=== PATIENT | female | born 1945 | race Caucasian/White ===

== ENCOUNTER 2019-09-23 20:18 | Inpatient (IN) | payer MEDICARE, SELFPAY ==
[2019-09-23 19:40] VITALS: PULSE 68
[2019-09-23 19:45] VITALS: BP 183/51; PULSE 69; RESP 20; TEMP 36.7; O2SAT 97
[2019-09-23 19:49] VITALS: BMI 38.7
--- NOTE | 2019-09-23 20:25 | HP.PCM_ITS ---
Problem List (1) Asthma exacerbation Status: Acute History of Present Illness Date of Admission: 09/23/19 Chief Complaint: shortness of breath The patient is a 73 year old F with a significant history of fibromyalgia; morbid obesity; asthma on 2 L home nasal cannula oxygen; osteoarthritis; hypertension; hyperlipidemia; aortic aneurysm; carotid artery disease status post carotid endarterectomy who presented with 1 month history of persistent shortness of breath. Associated with her symptoms is productive cough of white sputum; orthopnea and paroxysmal nocturnal dyspnea. In the course of the one month, patient has been treated for bronchitis. A week ago she was admitted at [facility] and treated for the same current symptoms. She was discharged home and instructed to follow up with a PCP. At home her oxygen saturation was between 83% to 90%. She went to her PCPs office at the same day of presentation. At the PCPs office she was examined and told to report to emergency department because of her respiratory symptoms. Accordingly she went to [facility] ED where she was treated for asthma exacerbation. Patient requested to be seen by biodiesel engine specialist and because [facility] does not have a biodiesel engine specialist patient was transferred. She was transferred to hospital on the same day of presentation to [facility] emergency department. She saw Dr. Oakley; biodiesel engine specialist probably in August 2019 and she is supposed to have further work up with Dr. Oakley. CT of the chest at [facility] showed bronchiolitis; inflammatory versus infectious. At [facility] patient received breathing treatment; steroid and doxycycline. Past Medical History Medical History: Medical History (Last Reviewed 09/24/19 @ 04:55 by Michael Ryan MD) Asthma J45.909 Home Medications: Ambulatory Orders Medication Instructions Recorded Aspirin [Aspir 81] 81 mg PO DAILY 09/23/19 Atorvastatin Calcium [Lipitor] 20 mg PO QHS 09/23/19 Benazepril HCl 20 mg BID 09/23/19 Budesonide/Formoterol 160/4.5 2 puff INHALATION BID 09/23/19 [Symbicort 160/4.5 Mcg Inhaler (SP)] Carvedilol 25 mg BID 09/23/19 Citalopram Hydrobromide 10 mg PO DAILY 09/23/19 [Citalopram HBr] Famotidine 20 mg PO BID 09/23/19 Fluticasone 0.05% [Flonase Nasal 1 spray NASAL BID PRN 09/23/19 [place]] Hydralazine HCl 25 mg PO TID 09/23/19 Hydroxychloroquine [Plaquenil] 200 mg PO BIDCM 09/23/19 Ipratropium/Albuterol Sulfate 3 ml IH Q4H 09/23/19 [Iprat-Albut 0.5-3(2.5) mg/3 ml] Levalbuterol Tartrate [Xopenex Hfa 2 puff INHALATION Q4H PRN PRN 09/23/19 Inhaler] Methocarbamol 500 mg PO BID PRN 09/23/19 Montelukast Sodium [Singulair] 10 mg PO DAILY 09/23/19 Nystatin 2 applicatio TOPICAL BID PRN 09/23/19 Promethazine HCl/Codeine 5 ml PO TID PRN 09/23/19 [Promethazine-Codeine Syrup] Surgical History: appendectomy, cholecystectomy, - - Carotid endarterectomy Lives: Spouse/ Significant Other Smoking Status: Never smoker Alcohol: None - *Family History Maternal History Items: Heart Disease, Hypertension Paternal History Items: Heart Disease Review of Systems Constitutional: Reports: Anorexia, Malaise, Weakness, Fatigue. Denies: Chills, Fever, Weight Change HEENT: Reports: Head Aches, Sinus Congestion Cardiovascular: Reports: Chest Tightness, Orthopnea, Paroxysmal Noc. Dyspnea. Denies: Chest Pain, Palpitations Respiratory: Reports: Cough, Shortness of Breath, Sputum production, Wheezing Gastrointestinal: Denies: Abdominal Pain, Nausea, Vomiting Genitourinary: Denies: Dysuria Musculoskeletal: Denies: Joint Pain, Joint Tenderness Skin: Denies: Rash, Wounds Neurological: Denies: Numbness, Tingling, Focal weakness Psychiatric: Reports: Depression. Denies: Anxiety, Homicidal Ideations, Suicidal Ideations Hematologic/ Lymphatic: Denies: Easy Bruising, Easy Bleeding VTE Information - Inpt Only VTE Present on Admission: No VTE Mechan Device Prophylaxis: None VTE Pharm Prophylaxis ordered?: Yes Patient Problems: Active and Suspected Problems (Last Reviewed 09/23/19 @ 20:47 by Michael Ryan MD) Asthma exacerbation (Acute) - Physical Exam Vitals/I&O's: Weight: 105.7 kg Body Mass Index (BMI) 38.7 General: Alert, Oriented x3, Cooperative HEENT: Atraumatic, PERRLA, EOMI, Normocephalic Neck: Supple, No JVD, Negative Carotid Bruits Lungs: No rales, Tachypneic, Wheezes - mild to moderate Cardiovascular: Normal S1, Normal S2, No murmurs Abdomen: Bowel Sounds Present, Soft, Non Tender Extremities: No edema, Capillary Refill Less than 3 Seconds Skin: No rashes, No breakdown Musculoskeletal: No Tenderness to Palpation of Joints or Extremities Neurological: Cranial nerves II-XII grossly intact Psych/Mental Status: Normal Affect, Appropriate Assessment/Plan All Active Problems (Last Reviewed 09/23/19 @ 20:47 by Michael Ryan MD) Asthma exacerbation (Acute) The patient is a 73 year old F with a significant history of fibromyalgia; morbid obesity; asthma on 2 L home nasal cannula oxygen;osteoarthritis and hypertensions; hyperlipidemia; aortic aneurysm; carotid artery disease status post carotid endarterectomy who presented with shortness of breath; productive cough; nasal congestion; wheezing and if CT evidence of bronchiolitis consistent with asthma and bronchiolitis. Asthma exacerbation with bronchiolitis Scheduled DuoNeb Albuterol as needed Prednisone 40 mg daily ordered. On ICS-LABA at home. ICS continued Scheduled mucinex. Continue home promethazine?codeine syrup as needed. We will continue Doxycycline started at [place] emergency department. Oxygen; titrate as needed Monitor BMP and CBC We will consult Dr. Minor, biodiesel engine specialist. Nasal congestion Flonase continued Hypertensive urgency On presentation her systolic blood pressure was more than 180. Resume home oral blood pressure medications. Trend and adjust blood pressure medications as necessary Arthritis Plaquenil continued DVT prophylaxis Subcutaneous heparin Code Visit Inpatient E&M: 82088 Init Hosp L3
[2019-09-23 20:55] VITALS: BMI 38.8
[2019-09-23] MEDS: Fluticasone 0.05% 1 SPRAY NASAL.SRY NASAL (22:13)
[2019-09-23] MEDS: guaiFENesin 1,200 MG Tablet 1200 MG PO (22:13)
[2019-09-23] MEDS: Doxycycline 100 MG CAPSULE PO (22:14)
[2019-09-23 22:15] VITALS: BP 183/51; PULSE 69
[2019-09-23] MEDS: Atorvastatin Calcium 20 MG Tablet PO (22:15)
[2019-09-23] MEDS: hydrALAZINE 25 MG Tablet PO (22:15)
[2019-09-23] MEDS: Lisinopril 20 MG Tablet PO (22:16)
[2019-09-23] MEDS: Carvedilol 25 MG Tablet PO (22:16)
[2019-09-23] MEDS: Famotidine 20 MG Tablet PO (22:16)
[2019-09-23] MEDS: Heparin Injection (Vial) 5,000 UNIT/ML VIAL 5000 UNIT SC (22:16)
[2019-09-23] MEDS: guaiFENesin/Codeine 5 ML UDC PO (22:22)
[2019-09-23 23:05] VITALS: RESP 20; O2SAT 97
[2019-09-24] VITALS (21 sets, daily range): BP systolic 114–189; BP diastolic 57–73; PULSE 57–80; RESP 16–20; TEMP 36.5–36.9; O2SAT 85–97
[2019-09-24] MEDS: hydrALAZINE 25 MG Tablet PO ×2 (06:23→13:07)
[2019-09-24 06:33] LABS: Absolute Lymphocyte Count 1.07 X10^3/uL (0.83-4.51); Absolute Neutrophil Count 4.8 X10^3/uL (2.0-7.7); Basophil# 0.01 X10^3/uL; Basophil% 0.2 % (0-1); Hematocrit 37.6 % (37-47); Hemoglobin 12.1 g/dL (12.0-15.0); Lymphocyte # 1.07 X10^3/ul (4.0); Lymphocyte % 16.6 % (19-41); Mean Corp Hgb Conc 32.2 g/dL (32-36); Mean Corpuscular Hgb 29.2 pg (27.0-32.0); Mean Corpuscular Volume 90.8 fL (81-99); Mean Platelet Vol. 10.9 fl (6.2-12.0); Monocyte# 0.45 X10^3/uL; NRBC Flagged by Analyzer 0 % (0-5); Neutrophil # 4.83 X10^3/uL (2.7-7.7); Neutrophil % 75.1 % (47-70); Platelet Count 151 K/mm3 (150-450); RBC Distribution Width CV 12.3 % (11.6-14.6); RBC Distribution Width SD 40.5 fl (35.1-43.9); Red Blood Count 4.14 M/mm3 (4.2-5.4); White Blood Count 6.4 K/mm3 (4.4-11.0)
[2019-09-24] MEDS: Ipratropium/Albuterol Sulfate 3 ML AMPUL.NEB INHALATION ×4 (06:53→19:27)
[2019-09-24 06:56] LABS: Anion Gap 4 (5-15); BUN 24 mg/dL (7-18); BUN/Creat Ratio 25.2 RATIO (10-20); Calcium,Total 8.3 mg/dL (8.5-10.1); Chloride 109 mmol/L (98-107); Creatinine, Serum 0.95 mg/dL (0.55-1.02); EST Glomerular Filtration Rate 61 mL/min (>60); Est Glom Filt Rate - Afr Amer 73 mL/min (>60); Estimated Creatinine Clearance 46.04 ml/min; Glucose 102 mg/dL (74-106); Potassium 4.2 mmol/L (3.5-5.1); Sodium Level 143 mmol/L (136-145)
[2019-09-24] MEDS: Hydroxychloroquine 200 MG Tablet PO ×2 (08:05→21:34)
[2019-09-24] MEDS: predniSONE 20 MG Tablet 40 MG PO (08:05)
[2019-09-24] MEDS: Aspirin E.C. 81 MG Tablet PO (08:05)
[2019-09-24] MEDS: Carvedilol 25 MG Tablet PO ×2 (08:06→21:35)
[2019-09-24] MEDS: Heparin Injection (Vial) 5,000 UNIT/ML VIAL 5000 UNIT SC ×2 (08:06→21:35)
[2019-09-24] MEDS: Doxycycline 100 MG CAPSULE PO (08:06)
[2019-09-24] MEDS: Lisinopril 20 MG Tablet PO ×2 (08:07→21:35)
[2019-09-24] MEDS: Fluticasone 0.05% 1 SPRAY NASAL.SRY NASAL ×2 (08:07→21:37)
[2019-09-24] MEDS: guaiFENesin 1,200 MG Tablet 1200 MG PO ×2 (08:07→21:33)
[2019-09-24] MEDS: Famotidine 20 MG Tablet PO ×2 (08:07→21:35)
--- NOTE | 2019-09-24 11:22 | PN_ITS ---
Patient Problems: Active and Suspected Problems (Last Reviewed 09/24/19 @ 04:55 by Michael Ryan MD) Asthma exacerbation (Acute) - Physical Exam Vitals/I&O's: Vital Signs Temp Pulse Resp BP Pulse Ox 97.8 F 68 18 150/65 H 97 09/24/19 06:12 09/24/19 06:53 09/24/19 06:53 09/24/19 08:10 09/24/19 06:53 Oxygen Flow Rate (L/min) 2 Oxygen Delivery Method Nasal Cannula Weight: 105.7 kg Body Mass Index (BMI) 38.7 Intake and Output for Last 24 Hours 09/22/19 09/23/19 09/24/19 23:59 23:59 23:59 Intake Total 150 / 150 200 / 200 Output Total 300 / 300 100 / 100 Balance -150 / -150 100 / 100 General: Alert, Oriented x3, Cooperative, - - dry mouth HEENT: Atraumatic, PERRLA, EOMI, Normocephalic Oral: Dry Mucosa Neck: Supple, No JVD, Negative Carotid Bruits Lungs: - - wheeze, long exp i to e 1-3, poor air entry. no cough Cardiovascular: Regular rate, No murmurs, - - freq pc's Abdomen: Bowel Sounds Present, Soft, Non Tender Extremities: No edema, Capillary Refill Less than 3 Seconds Skin: No rashes, No breakdown Musculoskeletal: No Tenderness to Palpation of Joints or Extremities Neurological: Cranial nerves II-XII grossly intact Psych/Mental Status: Normal Affect, Appropriate Laboratory Results 09/24/19 06:05: WBC 6.4, RBC 4.14 L, Hgb 12.1, Hct 37.6, MCV 90.8, MCH 29.2, MCHC 32.2, RDW Std Deviation 40.5, RDW Coeff of [place]sy 12.3, Plt Count 151, MPV 10.9, Immature Gran % (Auto) 1.100 H, Neut % (Auto) 75.1 H, Lymph % (Auto) 16.6 L, [place] % (Auto) 7.0, Eos % (Auto) 0.0, Baso % (Auto) 0.2, Absolute Neuts (auto) 4.8, Absolute Lymphs (auto) 1.07, Nucleated RBC % 0 09/24/19 06:05: Sodium 143, Potassium 4.2, Chloride 109 H, Carbon Dioxide 30.0, Anion Gap 4 L, BUN 24 H, Creatinine 0.95, Estim Creat Clear Calc 46.04, Est GFR (MDRD) Af Amer 73, Est GFR (MDRD) Non-Af 61, BUN/Creatinine Ratio 25.2 H, Glucose 102, Calcium 8.3 L Current Medications Acetaminophen (Tylenol) 650 mg PO Q6H PRN PRN PRN Reason: Pain Score 1-10/Temp > 100.7 F Albuterol Sulfate (Ventolin Aerosols) 2.5 mg INHALATION Q2H PRN PRN PRN Reason: SHORTNESS OF BREATH Albuterol/Ipratropium (Duoneb) 3 ml INHALATION Q4HWA.RT [facility] Last Admin: 09/24/19 11:21 Dose: 3 ml Documented by: [facility]) [facility] Admin: 09/24/19 08:05 Dose: 81 mg Documented by: Atorvastatin Calcium (Lipitor) 20 mg PO QHS [facility] Last Admin: 09/23/19 22:15 Dose: 20 mg Documented by: Carvedilol (Coreg) 25 mg PO BID [facility] Last Admin: 09/24/19 08:06 Dose: 25 mg Documented by: Citalopram Hydrobromide (Celexa) 10 mg PO QHS [facility] Doxycycline Monohydrate (Doxycycline) 100 mg PO BID [facility] Last Admin: 09/24/19 08:06 Dose: 100 mg Documented by: Famotidine (Pepcid) 20 mg PO BID [facility] Last Admin: 09/24/19 08:07 Dose: 20 mg Documented by: Fluticasone Propionate (Flonase Nasal [place]) 1 spray NASAL BID [facility] Last Admin: 09/24/19 08:07 Dose: 1 spray Documented by: Glucagon () 1 mg IM .X1 PRN PRN Reason: Hypoglycemia Guaifenesin (Mucinex) 1,200 mg PO BID [facility] Last Admin: 09/24/19 08:07 Dose: 1,200 mg Documented by: Guaifenesin/Codeine Phosphate (Robitussin Ac) 5 ml PO TID PRN PRN PRN Reason: COUGH Last Admin: 09/23/19 22:22 Dose: 5 ml Documented by: Heparin Sodium (Porcine) (Heparin Na) 5,000 unit SC Q12 [facility] Last Admin: 09/24/19 08:06 Dose: 5,000 unit Documented by: Hydralazine HCl (Apresoline) 25 mg PO TID [facility] Last Admin: 09/24/19 06:23 Dose: 25 mg Documented by: Hydroxychloroquine Sulfate (Plaquenil) 200 mg PO BIDCM [facility] Last Admin: 09/24/19 08:05 Dose: 200 mg Documented by: Sodium Chloride () 250 mls @ 15 mls/hr IV .[id number] PRN PRN Reason: Saline Flush Sodium Chloride () 250 mls @ 15 mls/hr IV .[id number] PRN PRN Reason: Additional IVPB Infusion Dextrose (Dextrose 10%-Water) 250 mls @ 999 mls/hr IV .Q16M PRN; Protocol PRN Reason: HYPOGLYCEMIA Lisinopril (Zestril) 20 mg PO BID [facility] Last Admin: 09/24/19 08:07 Dose: 20 mg Documented by: Methocarbamol (Robaxin) 500 mg PO BID PRN PRN PRN Reason: muscle spasm Methylprednisolone (Solu-Medrol) 40 mg IV Q6 [facility] Montelukast Sodium (Singulair) 10 mg PO QHS [facility] Nystatin (Mycostatin) 1 applic TOPICAL BID PRN PRN Ondansetron HCl (Zofran) 4 mg IV Q8H PRN PRN PRN Reason: NAUSEA/VOMITING Sodium Chloride () 10 - 40 ml IV UD PRN PRN Reason: SALINE FLUSH Medical Necessity - Tobacco Use Smoking Status: Never smoker Tobacco Use: Non-smoker Assessment/Plan All Active Problems (Last Reviewed 09/24/19 @ 04:55 by Michael Ryan MD) Asthma exacerbation (Acute) copd, resp failure, doing poorly w/ pap rx. min response over 24 h Pt has about the same level of dyspnea cont w/ steroids and aerosols. I do suggest mso4 neb 5 mg 4x daily also xanax prn for anxiety is another option no abx at this point pt might want to consider palliative care. no d/c yet. Discussed w/ attending
--- NOTE | 2019-09-24 12:41 | CASEMGMT ---
RN CM Assessment Presentation: Asthma exacerbation. Intro role of CM and purpose of RN CM assessment to patient in room. Pt is awake, alert and able to participate in assessment. Demographics, PCP and Pharmacy verified. Pt states she is independent, does not use ambulatory DME. Plan is to return home on dc. PCP: Dr. Alana Penn Specialists: Dr. Oakley, pulmonology Preferred Pharmacy: [facility] [place] Insurance: [facility] Prescription Benefit: none LNOK: , Yi Cormier Living Arrangements: Lives in two story home with basement. Bedroom on second floor. Pt denies difficulty with stairs. States she is independent with ADL, not requiring assistance. Transportation: drives or family can drive. DME: Home oxygen through [facility] (ph: [phone]) Pt has compressor, portability, nebulizer. Script is for 2L NC continuous. -pt has walker and cane, does not use. HHC/SNF: none in past Patient DC goals: Home DC PLAN: Home. Juan Jose MONROY RN ACM
--- NOTE | 2019-09-24 13:01 | CASEMGMT ---
Physician suggested Palliative Care for patient. SW met with patient and her . Introduced self and role at [facility]. SW explained Palliative Care and how it would benefit her. She politely declined at this time, but thanked SW for checking with her. She did accept pamphlet. Marleni JESSICA
--- NOTE | 2019-09-24 13:03 | PCM.PN.HOSP ---
Patient Problems: Active and Suspected Problems (Last Reviewed 09/24/19 @ 04:55 by Michael Ryan MD) Asthma exacerbation (Acute) Reason for Visit: SOB Subjective: Still somewhat SOB when up on her feet. No fever/chills. No dizziness/LH. No CP. Wheezing improved. Normally uses o2 at night only. Vitals/I&O's: Vital Signs Temp Pulse Resp BP Pulse Ox 97.8 F 70 16 150/65 H 97 09/24/19 06:12 09/24/19 11:21 09/24/19 11:21 09/24/19 08:10 09/24/19 06:53 Oxygen Flow Rate (L/min) 2 Oxygen Delivery Method Nasal Cannula Weight: 233 lb 0.458 oz Body Mass Index (BMI) 38.7 Intake and Output for Last 24 Hours 09/22/19 09/23/19 09/24/19 23:59 23:59 23:59 Intake Total 150 / 150 200 / 200 Output Total 300 / 300 100 / 100 Balance -150 / -150 100 / 100 General: Alert, Oriented x3, Cooperative HEENT: Atraumatic, PERRLA, EOMI, Normocephalic Neck: Supple, No JVD, Negative Carotid Bruits Lungs: Diminished, Wheezes Cardiovascular: Regular rate, No murmurs Abdomen: Bowel Sounds Present, Soft, Non Tender Extremities: No edema, Capillary Refill Less than 3 Seconds Skin: No rashes, No breakdown Musculoskeletal: No Tenderness to Palpation of Joints or Extremities Neurological: Cranial nerves II-XII grossly intact Psych/Mental Status: Normal Affect, Appropriate, Alert and oriented to time, place, person, mood and affect Laboratory Results 09/24/19 06:05: WBC 6.4, RBC 4.14 L, Hgb 12.1, Hct 37.6, MCV 90.8, MCH 29.2, MCHC 32.2, RDW Std Deviation 40.5, RDW Coeff of [place] 12.3, Plt Count 151, MPV 10.9, Immature Gran % (Auto) 1.100 H, Neut % (Auto) 75.1 H, Lymph % (Auto) 16.6 L, [place] % (Auto) 7.0, Eos % (Auto) 0.0, Baso % (Auto) 0.2, Absolute Neuts (auto) 4.8, Absolute Lymphs (auto) 1.07, Nucleated RBC % 0 09/24/19 06:05: Sodium 143, Potassium 4.2, Chloride 109 H, Carbon Dioxide 30.0, Anion Gap 4 L, BUN 24 H, Creatinine 0.95, Estim Creat Clear Calc 46.04, Est GFR (MDRD) Af Amer 73, Est GFR (MDRD) Non-Af 61, BUN/Creatinine Ratio 25.2 H, Glucose 102, Calcium 8.3 L Current Medications Acetaminophen (Tylenol) 650 mg PO Q6H PRN PRN PRN Reason: Pain Score 1-10/Temp > 100.7 F Albuterol Sulfate (Ventolin Aerosols) 2.5 mg INHALATION Q2H PRN PRN PRN Reason: SHORTNESS OF BREATH Albuterol/Ipratropium (Duoneb) 3 ml INHALATION Q4HWA.RT [facility] Last Admin: 09/24/19 11:21 Dose: 3 ml Documented by: Aspirin (Ecotrin) 81 mg PO DAILYCM [facility] Last Admin: 09/24/19 08:05 Dose: 81 mg Documented by: Atorvastatin Calcium (Lipitor) 20 mg PO QHS [facility] Last Admin: 09/23/19 22:15 Dose: 20 mg Documented by: Carvedilol (Coreg) 25 mg PO BID [facility] Last Admin: 09/24/19 08:06 Dose: 25 mg Documented by: Citalopram Hydrobromide (Celexa) 10 mg PO QHS [facility] Doxycycline Monohydrate (Doxycycline) 100 mg PO BID [facility] Last Admin: 09/24/19 08:06 Dose: 100 mg Documented by: Famotidine (Pepcid) 20 mg PO BID [facility] Last Admin: 09/24/19 08:07 Dose: 20 mg Documented by: Fluticasone Propionate (Flonase Nasal [place]) 1 spray NASAL BID [facility] Last Admin: 09/24/19 08:07 Dose: 1 spray Documented by: Glucagon () 1 mg IM .X1 PRN PRN Reason: Hypoglycemia Guaifenesin (Mucinex) 1,200 mg PO BID [facility] Last Admin: 09/24/19 08:07 Dose: 1,200 mg Documented by: Guaifenesin/Codeine Phosphate (Robitussin Ac) 5 ml PO TID PRN PRN PRN Reason: COUGH Last Admin: 12/17/19 22:22 Dose: 5 ml Documented by: Heparin Sodium (Porcine) (Heparin Na) 5,000 unit SC Q12 [facility] Last Admin: 09/24/19 08:06 Dose: 5,000 unit Documented by: Hydralazine HCl (Apresoline) 25 mg PO TID [facility] Last Admin: 09/24/19 06:23 Dose: 25 mg Documented by: Hydroxychloroquine Sulfate (Plaquenil) 200 mg PO BIDCM [facility] Last Admin: 09/24/19 08:05 Dose: 200 mg Documented by: Sodium Chloride () 250 mls @ 15 mls/hr IV .[id number] PRN PRN Reason: Saline Flush Sodium Chloride () 250 mls @ 15 mls/hr IV .[id number] PRN PRN Reason: Additional IVPB Infusion Dextrose (Dextrose 10%-Water) 250 mls @ 999 mls/hr IV .Q16M PRN; Protocol PRN Reason: HYPOGLYCEMIA Lisinopril (Zestril) 20 mg PO BID [facility] Last Admin: 09/24/19 08:07 Dose: 20 mg Documented by: Methocarbamol (Robaxin) 500 mg PO BID PRN PRN PRN Reason: muscle spasm Methylprednisolone (Solu-Medrol) 40 mg IV Q6 [facility] Montelukast Sodium (Singulair) 10 mg PO QHS [facility] Nystatin (Mycostatin) 1 applic TOPICAL BID PRN PRN Ondansetron HCl (Zofran) 4 mg IV Q8H PRN PRN PRN Reason: NAUSEA/VOMITING Sodium Chloride () 10 - 40 ml IV UD PRN PRN Reason: SALINE FLUSH STROKE Vital Signs/Narrative: Vital Signs Pulse Resp 09/24/19 11:21 70 16 Medical Necessity - Tobacco Use Smoking Status: Never smoker Tobacco Use: Non-smoker Assessment/Plan All Active Problems (Last Reviewed 09/24/19 @ 04:55 by Michael Ryan MD) Asthma exacerbation (Acute) 1. Acute asthma exacerbation - pt recently admitted and DCd from [facility] with asthma exacerbation, went home with prednisone for 4 days and then became worse. Today she is improving with less wheezing. She was SOB with exertion. Discussed with Dr. Oakley. Check viral panel, if negative stop doxy. Start IV solumedrol. Check daily peak flow. -continue aerosols -continue singulair -CT with some bronchiolitis -needs PFTs/PSG 2. HTN urgency - improved. 3. Arthritis - plaquenil 4. Obesity - dietary eval. 5. Depression - celexa DVT ppx: heparin DC planning: home, possibly with o2 with exertion. This patient was seen by Damián Oconnell PA-C under the supervision of Dr. Will
[2019-09-24] MEDS: 0.9% Saline Lock 10 ML Syringe IV ×2 (13:05→18:01)
--- NOTE | 2019-09-24 14:23 | CHAPLAIN ---
Type of Pastoral Visit _x__ Initial Visit ___ Follow-up Visit ___ On-call Visit ___ General Patient Visit ___ Spiritual Assessment ___ Family Conference ___ Bereavement ___ Rapid Response ___ Code Blue ___ Other (describe below) Pastoral Care Referral From _x__ Patient ___ Family ___ Nurse ___ Physician ___ Site Safety Coordinator ___ Vet Assistant ___ Other (describe below) Sacrament/Intervention _x__ Active listening ___ Anointing ___ Gnosticism ___ Bereavement ___ Communion _x__ Valeria exploration ___ ___ Life review _x__ Prayer ___ Reconciliation ___ Sacrament of Sick _x__ Supportive presence ___ Wedding ___ Other (describe below) Pastoral Comments
[2019-09-24] MEDS: Acetaminophen 325 MG Tablet 650 MG PO (16:25)
[2019-09-24] MEDS: Atorvastatin Calcium 20 MG Tablet PO (21:33)
[2019-09-24] MEDS: Citalopram 10 MG Tablet PO (21:33)
[2019-09-24] MEDS: Montelukast 10 MG Tablet PO (21:34)
[2019-09-24] MEDS: hydrALAZINE 50 MG Tablet PO (21:36)
[2019-09-24] MEDS: hydrALAZINE 20 MG/ML Vial 10 MG IV (23:31)
[2019-09-25] VITALS (13 sets, daily range): BP systolic 149–183; BP diastolic 51–71; PULSE 65–82; RESP 18–20; TEMP 36.5–37.2; O2SAT 89–96
[2019-09-25] MEDS: hydrALAZINE 20 MG/ML Vial 10 MG IV (03:48)
[2019-09-25] MEDS: 0.9% Saline Lock 10 ML Syringe IV (05:40)
[2019-09-25] MEDS: hydrALAZINE 50 MG Tablet PO (05:40)
[2019-09-25] MEDS: Ipratropium/Albuterol Sulfate 3 ML AMPUL.NEB INHALATION ×2 (07:42→11:50)
[2019-09-25] MEDS: Carvedilol 25 MG Tablet PO (09:13)
[2019-09-25] MEDS: Aspirin E.C. 81 MG Tablet PO (09:13)
[2019-09-25] MEDS: Heparin Injection (Vial) 5,000 UNIT/ML VIAL 5000 UNIT SC (09:13)
[2019-09-25] MEDS: Lisinopril 20 MG Tablet PO (09:13)
[2019-09-25] MEDS: Hydroxychloroquine 200 MG Tablet PO (09:13)
[2019-09-25] MEDS: Famotidine 20 MG Tablet PO (09:14)
[2019-09-25] MEDS: guaiFENesin 1,200 MG Tablet 1200 MG PO (09:14)
[2019-09-25] MEDS: Fluticasone 0.05% 1 SPRAY NASAL.SRY NASAL (09:22)
--- NOTE | 2019-09-25 11:00 | PCM.DC ---
- Discharge Diagnoses Current Active Problems: Current Active and Chronic Problems (Last Reviewed 09/24/19 @ 04:55 by Michael Ryan MD) Asthma exacerbation (Acute) You will use the following diet at home:: Regular Discharge Activity: Return to Normal Activity Call your doctor if you observe: Shortness of breath, Dizziness, Fainting spells, Chest pain Allergies/Adverse Reactions: Allergies Penicillins Allergy (Severe, Verified 09/23/19 20:53) Anaphylaxis acetaminophen [From [place]] Adverse Reaction (Verified 09/23/19 20:54) Upset Stomach hydrocodone [From [place]] Adverse Reaction (Verified 09/23/19 20:54) Upset Stomach meperidine [From [place]] Adverse Reaction (Verified 09/23/19 20:54) Upset Stomach trouble waking up, lethargic Medications to take at Discharge Aspirin [Aspir 81] 81 mg PO DAILY 09/23/19 Atorvastatin Calcium [Lipitor] 20 mg PO QHS 09/23/19 Benazepril HCl 20 mg BID 09/23/19 Budesonide/Formoterol 160/4.5 [Symbicort 160/4.5 Mcg Inhaler (SP)] 2 puff INHALATION BID 09/23/19 Carvedilol 25 mg BID 09/23/19 Citalopram Hydrobromide [Citalopram HBr] 10 mg PO DAILY 09/23/19 Famotidine 20 mg PO BID 09/23/19 Fluticasone 0.05% [Flonase Nasal [place]] 1 spray NASAL BID PRN 09/23/19 Hydralazine HCl 25 mg PO TID 09/23/19 Hydroxychloroquine [Plaquenil] 200 mg PO BIDCM 09/23/19 Ipratropium/Albuterol Sulfate [Iprat-Albut 0.5-3(2.5) mg/3 ml] 3 ml IH Q4H 09/23/19 Levalbuterol Tartrate [Xopenex Hfa Inhaler] 2 puff INHALATION Q4H PRN PRN 09/23/19 Methocarbamol 500 mg PO BID PRN 09/23/19 Montelukast Sodium [Singulair] 10 mg PO DAILY 09/23/19 Nystatin 2 applicatio TOPICAL BID PRN 09/23/19 Promethazine HCl/Codeine [Promethazine-Codeine Syrup] 5 ml PO TID PRN 09/23/19 Prednisone See Taper PO DAILY #30 tab 09/25/19 The following prescriptions were given: Prednisone See Taper PO DAILY #30 tab Transmission Status: Pending to [facility] Primary Care Physician: Alana Penn MD [Primary Care Provider] - Please follow up with your Primary Care Physician in: 1 Week Test Results: Test results from this visit will be discussed in further detail at your follow-up appointment, if applicable. Please Follow Up With: Salvatore Oakley MD When: 1 Week Proposed Discharge Date: 09/25/19
--- NOTE | 2019-09-25 12:16 | PCM.DC.SUM ---
Discharge Date and Diagnosis Date of Admission: 09/23/19 Date of Discharge: 09/25/19 - Primary Discharge Diagnosis Active and Suspected Problems (Last Reviewed 09/24/19 @ 04:55 by Michael Ryan MD) 1. Acute asthma exacerbation secondary to RSV with chronic hypoxic respiratory failure 2. Hypertensive urgency 3. Arthritis/fibromyalgia 4. Depression 5. Obesity 6. Hypertension 7. Hyperlipidemia 8. Carotid artery disease status post carotid endarterectomy 9. History of aortic aneurysm Hospital Course and Treatment Dr. Oakley- Pulmonary Medicine Operations: None Procedures: None Summary of Care Provided: The patient is a 73 year old F admitted 09/23/2019 due to shortness of breath. 1. Acute asthma exacerbation secondary to RSV with chronic hypoxic respiratory failure-prednisone taper at discharge. Continue supplemental oxygen to maintain O2 at or above 90%. Follow-up with Dr. Oakley in 1 week. Continue home inhaler regimen. 2. Hypertensive urgency-resolved. Continue home benazepril, carvedilol regimen. 3. Arthritis/fibromyalgia-continue Plaquenil. 4. Depression-continue citalopram regimen. 5. Obesity- encouraged diet and lifestyle modifications. 6. Hyperlipidemia-continue statin. 7. Carotid artery disease status post carotid endarterectomy-continue aspirin, statin. 8. History of aortic aneurysm General: Alert, Oriented x3, Cooperative HEENT: Atraumatic, PERRLA, EOMI, Normocephalic Neck: Supple, No JVD, Negative Carotid Bruits Lungs: Diminished, Wheezes Cardiovascular: Regular rate, No murmurs Abdomen: Bowel Sounds Present, Soft, Non Tender Extremities: No edema, Capillary Refill Less than 3 Seconds Skin: No rashes, No breakdown Musculoskeletal: No Tenderness to Palpation of Joints or Extremities Neurological: Cranial nerves II-XII grossly intact Psych/Mental Status: Normal Affect, Appropriate Patient seen and examined prior to discharge. Physical assessment as noted above. Patient is stable for discharge with follow up recommendations as noted above. This patient was seen by GAIL Baker under the supervision of Dr. Will. - Physical Exam Vitals/I&O's: Vital Signs Temp Pulse Resp BP Pulse Ox 98.3 F 73 18 154/64 H 96 09/25/19 09:11 09/25/19 11:51 09/25/19 11:51 09/25/19 09:11 09/25/19 11:51 Oxygen Flow Rate (L/min) 2 Oxygen Delivery Method Room Air Weight: 233 lb 0.458 oz Body Mass Index (BMI) 38.7 Intake and Output for Last 24 Hours 09/23/19 09/24/19 09/25/19 23:59 23:59 23:59 Intake Total 150 / 150 600 / 600 1680 / 1680 Output Total 300 / 300 280 / 280 Balance -150 / -150 320 / 320 1680 / 1680 Microbiology Past 72 Hours 09/24/19 Unknown Mucosa - Nose Respiratory Panel (PCR) - Final RSV A Current Medications Acetaminophen (Tylenol) 650 mg PO Q6H PRN PRN PRN Reason: Pain Score 1-10/Temp > 100.7 F Last Admin: 09/24/19 16:25 Dose: 650 mg Documented by: Albuterol Sulfate (Ventolin Aerosols) 2.5 mg INHALATION Q2H PRN PRN PRN Reason: SHORTNESS OF BREATH Albuterol/Ipratropium (Duoneb) 3 ml INHALATION Q4HWA.RT [facility] Last Admin: 09/25/19 11:50 Dose: 3 ml Documented by: [facility]irin ([facility]) [facility] Last Admin: 09/25/19 09:13 Dose: 81 mg Documented by: Atorvastatin Calcium (Lipitor) 20 mg PO QHS [facility] Last Admin: 09/24/19 21:33 Dose: 20 mg Documented by: Carvedilol (Coreg) 25 mg PO BID [facility] Last Admin: 09/25/19 09:13 Dose: 25 mg Documented by: Citalopram Hydrobromide (Celexa) 10 mg PO QHS [facility] Last Admin: 09/24/19 21:33 Dose: 10 mg Documented by: Famotidine (Pepcid) 20 mg PO BID [facility] Last Admin: 09/25/19 09:14 Dose: 20 mg Documented by: Fluticasone Propionate (Flonase Nasal [place]) 1 spray NASAL BID [facility] Last Admin: 09/25/19 09:22 Dose: 1 spray Documented by: Glucagon () 1 mg IM .X1 PRN PRN Reason: Hypoglycemia Guaifenesin (Mucinex) 1,200 mg PO BID [facility] Last Admin: 09/25/19 09:14 Dose: 1,200 mg Documented by: Guaifenesin/Codeine Phosphate (Robitussin Ac) 5 ml PO TID PRN PRN PRN Reason: COUGH Last Admin: 09/23/19 22:22 Dose: 5 ml Documented by: Heparin Sodium (Porcine) (Heparin Na) 5,000 unit SC Q12 [facility] Last Admin: 09/25/19 09:13 Dose: 5,000 unit Documented by: Hydralazine HCl (Apresoline) 50 mg PO TID [facility] Last Admin: 09/25/19 05:40 Dose: 50 mg Documented by: Hydralazine HCl (Apresoline Iv) 10 mg IV Q4H PRN PRN PRN Reason: SBP > 160 Last Admin: 09/25/19 03:48 Dose: 10 mg Documented by: Hydroxychloroquine Sulfate (Plaquenil) 200 mg PO BID [facility] Last Admin: 09/25/19 09:13 Dose: 200 mg Documented by: Sodium Chloride () 250 mls @ 15 mls/hr IV .[id number] PRN PRN Reason: Saline Flush Sodium Chloride () 250 mls @ 15 mls/hr IV .[id number] PRN PRN Reason: Additional IVPB Infusion Dextrose (Dextrose 10%-Water) 250 mls @ 999 mls/hr IV .Q16M PRN; Protocol PRN Reason: HYPOGLYCEMIA Lisinopril (Zestril) 20 mg PO BID [facility] Last Admin: 09/25/19 09:13 Dose: 20 mg Documented by: Methocarbamol (Robaxin) 500 mg PO BID PRN PRN PRN Reason: muscle spasm Methylprednisolone (Solu-Medrol) 40 mg IV Q6 [facility] Last Admin: 09/25/19 11:40 Dose: 40 mg Documented by: Montelukast Sodium (Singulair) 10 mg PO QHS [facility] Last Admin: 09/24/19 21:34 Dose: 10 mg Documented by: Nutritional Formula (Lactose Free) (Ensure Enlive) 120 ml PO 4X/DAY [facility] Last Admin: 09/25/19 09:14 Dose: 120 ml Documented by: Nystatin (Mycostatin) 1 applic TOPICAL BID PRN PRN Ondansetron HCl (Zofran) 4 mg IV Q8H PRN PRN PRN Reason: NAUSEA/VOMITING Sodium Chloride () 10 - 40 ml IV UD PRN PRN Reason: SALINE FLUSH Last Admin: 09/25/19 05:40 Dose: 10 ml Documented by: Discharge Diet: Low fat/ Low Cholesterol, 1800 Calorie Control Diet Discharge Activity: Return to Normal Activity Call your doctor if you observe: Shortness of breath, Dizziness, Fainting spells, Chest pain Home Medications: Medications to take at Discharge Aspirin [Aspir 81] 81 mg PO DAILY 09/23/19 Atorvastatin Calcium [Lipitor] 20 mg PO QHS 09/23/19 Benazepril HCl 20 mg BID 09/23/19 Budesonide/Formoterol 160/4.5 [Symbicort 160/4.5 Mcg Inhaler (SP)] 2 puff INHALATION BID 09/23/19 Carvedilol 25 mg BID 09/23/19 Citalopram Hydrobromide [Citalopram HBr] 10 mg PO DAILY 09/23/19 Famotidine 20 mg PO BID 09/23/19 Fluticasone 0.05% [Flonase Nasal [place]] 1 spray NASAL BID PRN 09/23/19 Hydralazine HCl 25 mg PO TID 09/23/19 Hydroxychloroquine [Plaquenil] 200 mg PO BIDCM 09/23/19 Ipratropium/Albuterol Sulfate [Iprat-Albut 0.5-3(2.5) mg/3 ml] 3 ml IH Q4H 09/23/19 Levalbuterol Tartrate [Xopenex Hfa Inhaler] 2 puff INHALATION Q4H PRN PRN 09/23/19 Methocarbamol 500 mg PO BID PRN 09/23/19 Montelukast Sodium [Singulair] 10 mg PO DAILY 09/23/19 Nystatin 2 applicatio TOPICAL BID PRN 09/23/19 Promethazine HCl/Codeine [Promethazine-Codeine Syrup] 5 ml PO TID PRN 09/23/19 Prednisone See Taper PO DAILY #30 tab 09/25/19 Following Prescrptions Were Given to Patient: Prednisone See Taper PO DAILY #30 tab Transmission Status: Received by [id number] Primary Care Physician: Alana Penn MD [Primary Care Provider] - Please follow up with your Primary Care Physician in: 1 Week Please Follow Up With: Salvatore Oakley MD When: 1 Week Disposition: Home Minutes spent on discharge:: 35 Patient Condition:: Stable Medical Necessity - Tobacco Use Smoking Status: Never smoker Tobacco Use: Non-smoker Meaningful Use Info Meaningful Use Diagnoses (Choose all that apply): None applicable
== END 2019-09-25 13:16 | disposition home or self-care (01) | DRG 202 ==
PROVIDERS: Admitting Provider Hospitalist; Family Provider Family Medicine; PCP Family Medicine; Referring Provider Internal Medicine; Visit Provider Internal Medicine
DX: J45.901 Unspecified asthma with (acute) exacerbation (principal); J96.11 Chronic respiratory failure with hypoxia; Z99.81 Dependence on supplemental oxygen; J20.5 Acute bronchitis due to respiratory syncytial virus; E78.5 Hyperlipidemia, unspecified; I16.0 Hypertensive urgency; M19.90 Unspecified osteoarthritis, unspecified site; E66.01 Morbid (severe) obesity due to excess calories; Z68.38 Body mass index [BMI] 38.0-38.9, adult; M79.7 Fibromyalgia; I10 Essential (primary) hypertension; F32.9 Major depressive disorder, single episode, unspecified; Z86.79 Personal history of other diseases of the circulatory system
CPT/HCPCS: 36415; 80048; 85025; 87633; 94640; 94667; 94668; 97161; 97166; 97802; 99251; A4216; G0463

== ENCOUNTER 2019-10-14 05:32 | Inpatient (IN) | payer MEDICARE, SELFPAY ==
[2019-10-14] VITALS (12 sets, daily range): BP systolic 146–211; BP diastolic 70–90; PULSE 78–94; RESP 18–22; TEMP 36.6–36.8; O2SAT 92–97; BMI 35.2; BMI 35.3
--- NOTE | 2019-10-14 05:25 | HP.PCM_ITS ---
Problem List (1) Influenza Status: Acute (2) Asthma exacerbation Status: Acute History of Present Illness Date of Admission: 10/14/19 Chief Complaint: shortness of breath The patient is a 73 year old male patient with a past medical history of asthma presents the emergency [facility] with shortness of breath and diagnosis of influenza from her primary care office earlier the same day. The patient had recent sick contact with her grandson who tested positive for influenza A. Earlier today she the patient also experienced nausea and vomiting and she threw up her Tamiflu. The patient was a little weaker than usual as result and due to comorbid issues patient was advised to be admitted for overnight hydration and observation. Amatory studies show white blood cell count of 6.2, hemoglobin 12.2, hematocrit 37.3 platelets 75, sodium 134, potassium 4.1, chloride 102, bicarb 23, BUN 27, creatinine 1.03, glucose 107, chest x-ray negative for acute findings vital signs in the triage department of [facility] emergency room was temperature 98.6 ?F heart rate of 89 respirations 20 SPO2 of 90% BP 150/53. The patient arrived in good condition resting comfortably with oxygen via nasal cannula however she did have audible expiratory wheezes. Past Medical History Medical History: Medical History (Last Reviewed 09/24/19 @ 04:55 by Michael Ryan MD) Asthma J45.909 Allergies Penicillins Allergy (Severe, Verified 09/23/19 20:53) Anaphylaxis acetaminophen [From [place]] Adverse Reaction (Verified 09/23/19 20:54) Upset Stomach hydrocodone [From [place]] Adverse Reaction (Verified 09/23/19 20:54) Upset Stomach meperidine [From [place]] Adverse Reaction (Verified 09/23/19 20:54) Upset Stomach trouble waking up, lethargic Home Medications: Ambulatory Orders Medication Instructions Recorded Aspirin [Aspir 81] 81 mg PO DAILY 09/23/19 Atorvastatin Calcium [Lipitor] 20 mg PO QHS 09/23/19 Benazepril HCl 20 mg PO BID 09/23/19 Budesonide/Formoterol 160/4.5 2 puff INHALATION BID 09/23/19 [Symbicort 160/4.5 Mcg Inhaler (SP)] Carvedilol 12.5 mg PO BID 09/23/19 Citalopram Hydrobromide 10 mg PO DAILY 09/23/19 [Citalopram HBr] Famotidine 20 mg PO BID 09/23/19 Fluticasone 0.05% [Flonase Nasal 1 - 2 spray NASAL DAILY 09/23/19 [place]] Hydralazine HCl 25 mg PO TID 09/23/19 Hydroxychloroquine [Plaquenil] 200 mg PO BIDCM 09/23/19 Levalbuterol Tartrate [Xopenex Hfa 1 puff INHALATION Q4H PRN PRN 09/23/19 Inhaler] Montelukast Sodium [Singulair] 10 mg PO DAILY 09/23/19 Nystatin 2 applicatio TOPICAL BID PRN 09/23/19 Promethazine HCl/Codeine 5 ml PO TID PRN 09/23/19 [Promethazine-Codeine Syrup] Hydrochlorothiazide [Hctz] 12.5 mg PO DAILY 10/14/19 Ondansetron [Ondansetron Odt] 8 mg SL Q6H PRN PRN 10/14/19 Oseltamivir Phosphate [Tamiflu] 30 mg PO BID 10/14/19 Prednisone See Taper PO DAILY 10/14/19 Surgical History: appendectomy, cholecystectomy, - - Carotid endarterectomy Smoking Status: Never smoker - *Family History Maternal History Items: Heart Disease, Hypertension Paternal History Items: Heart Disease Review of Systems Constitutional: Reports: Weakness. Denies: Chills, Fever, Weight Change HEENT: Denies: Head Aches, Sinus Congestion, Sinus Drainage Cardiovascular: Denies: Chest Pain, Palpitations Respiratory: Reports: Cough, Shortness of breath at rest. Denies: Sputum production Gastrointestinal: Reports: Nausea, Vomiting. Denies: Abdominal Pain Genitourinary: Denies: Dysuria Musculoskeletal: Denies: Joint Pain, Joint Tenderness Skin: Denies: Rash, Wounds Neurological: Denies: Numbness, Tingling, Focal weakness Psychiatric: Denies: Anxiety, Depression, Homicidal Ideations, Suicidal Ideations Hematologic/ Lymphatic: Denies: Easy Bruising, Easy Bleeding VTE Information - Inpt Only VTE Present on Admission: No VTE Mechan Device Prophylaxis: None VTE Pharm Prophylaxis ordered?: Yes Patient Problems: Active and Suspected Problems (Last Reviewed 09/24/19 @ 04:55 by Michael Ryan MD) Influenza (Acute) - Physical Exam Vitals/I&O's: Vital Signs Temp Pulse Resp BP Pulse Ox 98.2 F 82 22 H 160/74 H 96 10/14/19 03:41 10/14/19 03:41 10/14/19 03:41 10/14/19 03:41 10/14/19 03:41 Oxygen Flow Rate (L/min) 3 Oxygen Delivery Method Nasal Cannula Weight: 211 lb 13.828 oz Body Mass Index (BMI) 35.2 General: Alert, Oriented x3, Cooperative HEENT: Atraumatic, Normocephalic Neck: Supple Lungs: Diminished, Rhonchi, Wheezes Cardiovascular: Regular rate, Normal S1, Normal S2, No murmurs Abdomen: Bowel Sounds Present, Soft, Non Tender, Obese Extremities: No edema Skin: No rashes Musculoskeletal: No Tenderness to Palpation of Joints or Extremities Neurological: Neuro grossly intact Psych/Mental Status: Normal Affect, Appropriate Current Medications Sodium Chloride () 250 mls @ 15 mls/hr IV .[id number] PRN PRN Reason: Saline Flush Sodium Chloride () 250 mls @ 15 mls/hr IV .[id number] PRN PRN Reason: Additional IVPB Infusion Nutritional Formula (Lactose Free) (Ensure Enlive) 120 ml PO 4X/DAY JENNIFER Sodium Chloride () 10 - 40 ml IV UD PRN PRN Reason: SALINE FLUSH Assessment/Plan All Active Problems (Last Reviewed 09/24/19 @ 04:55 by Michael Ryan MD) Influenza (Acute) Asthma exacerbation (Acute) Plan 1. Influenza infection?Tamiflu 75 mg twice daily, isolation per protocol, DuoNeb breathing treatments every 4 hours as needed, oxygen per protocol 2. Asthma exacerbation secondary to above?breathing treatments as above 3. Hypertension?continue home current medication 4. DVT prophylaxis?low molecular weight heparin Code Visit OBSV E&M: [id number] Initial observation care L2
[2019-10-14] MEDS: 0.9% Normal Saline 1,000 ML 125 ML IV ×3 (05:55→21:20)
[2019-10-14] MEDS: hydrALAZINE 25 MG Tablet PO ×3 (05:55→21:21)
[2019-10-14] MEDS: 0.9% Saline Lock 10 ML Syringe IV (05:56)
[2019-10-14] MEDS: Ipratropium/Albuterol Sulfate 3 ML AMPUL.NEB INHALATION ×4 (07:25→19:30)
[2019-10-14] MEDS: Budesonide Respules 0.5 MG/2 ML AMPUL.NEB. INHALATION ×2 (07:29→19:30)
[2019-10-14 07:40] LABS: ALB/GLOB Ratio 0.8 RATIO (0.9-2.4); AST(SGOT) 24 U/L (15-37); Alanine Aminotransfer ALT/SGPT 27 U/L (13-56); Albumin, Serum 2.6 g/dL (3.2-5.0); Alkaline Phosphatase 52 U/L (45-117); Anion Gap 4 (5-15); BUN 21 mg/dL (7-18); Calcium,Total 8.4 mg/dL (8.5-10.1); Chloride 109 mmol/L (98-107); Creatinine, Serum 0.87 mg/dL (0.55-1.02); EST Glomerular Filtration Rate 67 mL/min (>60); Est Glom Filt Rate - Afr Amer 81 mL/min (>60); Estimated Creatinine Clearance 50.28 ml/min; Globulin 3.1 g/dL (2.2-4.2); Glucose 108 mg/dL (74-106); Potassium 3.7 mmol/L (3.5-5.1); Protein, Total 5.7 g/dL (6.4-8.2); Sodium Level 137 mmol/L (136-145)
[2019-10-14] MEDS: Famotidine 20 MG Tablet PO ×2 (09:33→21:21)
[2019-10-14] MEDS: hydroCHLOROthiazide 12.5mg 12.5 MG PO (09:33)
[2019-10-14] MEDS: Carvedilol 12.5 MG Tablet PO ×2 (09:33→21:21)
[2019-10-14] MEDS: Citalopram 10 MG Tablet PO (09:33)
[2019-10-14] MEDS: Hydroxychloroquine 200 MG Tablet PO ×2 (09:33→16:53)
[2019-10-14] MEDS: Aspirin E.C. 81 MG Tablet PO (09:33)
[2019-10-14] MEDS: Lisinopril 20 MG Tablet PO ×2 (09:33→21:21)
[2019-10-14] MEDS: Montelukast 10 MG Tablet PO (09:33)
[2019-10-14] MEDS: Oseltamivir Phosphate 30 MG Capsule PO ×2 (09:34→21:21)
--- NOTE | 2019-10-14 12:30 | CHAPLAIN ---
Type of Pastoral Visit _x__ Initial Visit ___ Follow-up Visit ___ On-call Visit ___ General Patient Visit ___ Spiritual Assessment ___ Family Conference ___ Bereavement ___ Rapid Response ___ Code Blue ___ Other (describe below) Pastoral Care Referral From _x__ Patient ___ Family ___ Nurse ___ Physician ___ Process Eng ___ Artificial Flowers [place] ___ Other (describe below) Sacrament/Intervention _x__ Active listening ___ Anointing ___ Quaker ___ Bereavement ___ Communion _x__ [place] exploration ___ _x__ Life review _x__ Prayer ___ Reconciliation ___ Sacrament of Sick _x__ Supportive presence ___ Wedding ___ Other (describe below) Pastoral Comments
--- NOTE | 2019-10-14 12:43 | PCM.PROGNOTE ---
<Itzel Dillard - Last Filed: 10/14/19 12:49> Patient Problems: Active and Suspected Problems (Last Reviewed 09/24/19 @ 04:55 by Michael Ryan MD) Influenza (Acute) Subjective: Patient seen and examined. Continues to feel generally unwell. Reports general malaise and harsh cough. Denies fever, chills. - Physical Exam Vitals/I&O's: Vital Signs Temp Pulse Resp BP Pulse Ox 98.0 F 92 22 H 146/70 H 96 10/14/19 09:30 10/14/19 10:56 10/14/19 10:56 10/14/19 09:30 10/14/19 09:30 Oxygen Flow Rate (L/min) 2 Oxygen Delivery Method Nasal Cannula Weight: 211 lb 13.828 oz Body Mass Index (BMI) 35.2 Intake and Output for Last 24 Hours 10/12/19 10/13/19 10/14/19 23:59 23:59 23:59 Intake Total 400 / 400 Balance 400 / 400 General: Alert, Oriented x3, Cooperative HEENT: Atraumatic, PERRLA, EOMI, Normocephalic Neck: Supple, No JVD, Negative Carotid Bruits Lungs: Diminished, Rhonchi, Wheezes Cardiovascular: Regular rate, Regular Rhythm, Normal S1, Normal S2, No murmurs Abdomen: Bowel Sounds Present, Soft, Non Tender, Non-Distended, Obese Extremities: No clubbing, No cyanosis, No edema, Capillary Refill Less than 3 Seconds Skin: No rashes, No breakdown Musculoskeletal: No Tenderness to Palpation of Joints or Extremities Neurological: Cranial nerves II-XII grossly intact, Neuro grossly intact Psych/Mental Status: Normal Affect, Appropriate Microbiology Past 72 Hours 10/14/19 07:29 Mucosa - Nose Influenza Types A,B Direct FA ([facility]) - Final Laboratory Results 10/14/19 07:00: Sodium 137, Potassium 3.7, Chloride 109 H, Carbon Dioxide 24.0, Anion Gap 4 L, BUN 21 H, Creatinine 0.87, Estim Creat Clear Calc 50.28, Est GFR (MDRD) Af Amer 81, Est GFR (MDRD) Non-Af 67, BUN/Creatinine Ratio 24.0 H, Glucose 108 H, Calcium 8.4 L, Total Bilirubin 0.50, AST 24, ALT 27, Alkaline Phosphatase 52, Total Protein 5.7 L, Albumin 2.6 L, Globulin 3.1, Albumin/Globulin Ratio 0.8 L Current Medications Albuterol/Ipratropium (Duoneb) 3 ml INHALATION Q4HWA.RT [facility] Last Admin: 10/14/19 10:56 Dose: 3 ml Documented by: Aspirin (Ecotrin) 81 mg PO DAILY [facility] Last Admin: 10/14/19 09:33 Dose: 81 mg Documented by: Atorvastatin Calcium (Lipitor) 20 mg PO QHS [facility] Budesonide (Pulmicort Aerosol) 0.5 mg INHALATION Q12H.RT [facility] Last Admin: 10/14/19 07:29 Dose: 0.5 mg Documented by: Carvedilol (Coreg) 12.5 mg PO BID [facility] Last Admin: 10/14/19 09:33 Dose: 12.5 mg Documented by: Citalopram Hydrobromide (Celexa) 10 mg PO DAILY [facility] Last Admin: 10/14/19 09:33 Dose: 10 mg Documented by: Famotidine (Pepcid) 20 mg PO BID [facility] Last Admin: 10/14/19 09:33 Dose: 20 mg Documented by: Hydralazine HCl (Apresoline) 25 mg PO TID [facility] Last Admin: 10/14/19 05:55 Dose: 25 mg Documented by: Hydrochlorothiazide () 12.5 mg PO DAILY [facility] Last Admin: 10/14/19 09:33 Dose: 12.5 mg Documented by: Hydroxychloroquine Sulfate (Plaquenil) 200 mg PO BIDCM [facility] Last Admin: 10/14/19 09:33 Dose: 200 mg Documented by: Sodium Chloride () 250 mls @ 15 mls/hr IV .[id number] PRN PRN Reason: Saline Flush Sodium Chloride () 250 mls @ 15 mls/hr IV .[id number] PRN PRN Reason: Additional IVPB Infusion Sodium Chloride () 1,000 mls @ 125 mls/hr IV .Q8H [facility] Last Admin: 10/14/19 05:55 Dose: 125 mls/hr Documented by: Lisinopril (Zestril) 20 mg PO BID [facility] Last Admin: 10/14/19 09:33 Dose: 20 mg Documented by: Methylprednisolone (Solu-Medrol) 40 mg IV Q8 [facility] Montelukast Sodium (Singulair) 10 mg PO DAILY [facility] Last Admin: 10/14/19 09:33 Dose: 10 mg Documented by: Nutritional Formula (Lactose Free) (Ensure Enlive) 120 ml PO 4X/DAY [facility] Last Admin: 10/14/19 09:41 Dose: 120 ml Documented by: Ondansetron HCl (Zofran) 4 mg IV Q8H PRN PRN PRN Reason: NAUSEA/VOMITING Oseltamivir Phosphate (Tamiflu) 30 mg PO BID [facility] Stop: 10/18/19 22:01 Last Admin: 10/14/19 09:34 Dose: 30 mg Documented by: Sodium Chloride () 10 - 40 ml IV UD PRN PRN Reason: SALINE FLUSH Last Admin: 10/14/19 05:56 Dose: 10 ml Documented by: Medical Necessity - Tobacco Use Smoking Status: Never smoker Assessment/Plan All Active Problems (Last Reviewed 09/24/19 @ 04:55 by Michael Ryan MD) Influenza (Acute) Asthma exacerbation (Acute) 1. Asthma with exacerbation secondary to acute influenza A with chronic hypoxic respiratory failure-continue Tamiflu regimen. IV Solu-Medrol. DuoNeb aerosols. Continue supplement oxygen to maintain O2 at or above 90%. Patient wears supplemental oxygen at bedtime chronically as well as as needed. Follows with Dr. Oakley as outpatient. 2. Hypertension- Continue home benazepril, carvedilol, hydralazine, HCTZ regimen. 3. Arthritis/fibromyalgia-continue Plaquenil. 4. Depression-continue citalopram regimen. 5. Obesity- encouraged diet and lifestyle modifications. 6. Hyperlipidemia-continue statin. 7. Carotid artery disease status post carotid endarterectomy-continue aspirin, statin. 8. History of aortic aneurysm DVT prophylaxis-Lovenox subcu This patient was seen by GAIL Baker under the supervision of Dr. Mckeon. <Michaela Mckeon - Last Filed: 10/14/19 16:09> - Physical Exam Vitals/I&O's: Vital Signs Temp Pulse Resp BP Pulse Ox 97.8 F 94 20 H 151/76 H 92 10/14/19 13:27 10/14/19 15:05 10/14/19 15:05 10/14/19 13:27 10/14/19 15:05 Oxygen Flow Rate (L/min) 3 Oxygen Delivery Method Nasal Cannula Weight: 211 lb 13.828 oz Body Mass Index (BMI) 35.2 Intake and Output for Last 24 Hours 10/12/19 10/13/19 10/14/19 23:59 23:59 23:59 Intake Total 1335.42 / 1335.42 Balance 1335.42 / 1335.42 Microbiology Past 72 Hours 10/14/19 07:29 Mucosa - Nose Influenza Types A,B Direct FA ([facility]) - Final Influenzae A Laboratory Results 10/14/19 07:00: Sodium 137, Potassium 3.7, Chloride 109 H, Carbon Dioxide 24.0, Anion Gap 4 L, BUN 21 H, Creatinine 0.87, Estim Creat Clear Calc 50.28, Est GFR (MDRD) Af Amer 81, Est GFR (MDRD) Non-Af 67, BUN/Creatinine Ratio 24.0 H, Glucose 108 H, Calcium 8.4 L, Total Bilirubin 0.50, AST 24, ALT 27, Alkaline Phosphatase 52, Total Protein 5.7 L, Albumin 2.6 L, Globulin 3.1, Albumin/Globulin Ratio 0.8 L Current Medications Albuterol/Ipratropium (Duoneb) 3 ml INHALATION Q4HWA.RT [facility] Last Admin: 10/14/19 15:05 Dose: 3 ml Documented by: Aspirin (Ecotrin) 81 mg PO DAILY [facility] Last Admin: 10/14/19 09:33 Dose: 81 mg Documented by: Atorvastatin Calcium (Lipitor) 20 mg PO QHS [facility] Budesonide (Pulmicort Aerosol) 0.5 mg INHALATION Q12H.RT [facility] Last Admin: 10/14/19 07:29 Dose: 0.5 mg Documented by: Carvedilol (Coreg) 12.5 mg PO BID [facility] Last Admin: 10/14/19 09:33 Dose: 12.5 mg Documented by: Citalopram Hydrobromide (Celexa) 10 mg PO DAILY [facility] Last Admin: 10/14/19 09:33 Dose: 10 mg Documented by: Enoxaparin Sodium (Lovenox) 40 mg SC DAILY [facility] Famotidine (Pepcid) 20 mg PO BID [facility] Last Admin: 10/14/19 09:33 Dose: 20 mg Documented by: Guaifenesin (Mucinex) 1,200 mg PO BID [facility] Last Admin: 10/14/19 15:07 Dose: 1,200 mg Documented by: Hydralazine HCl (Apresoline) 25 mg PO TID [facility] Last Admin: 10/14/19 13:22 Dose: 25 mg Documented by: Hydrochlorothiazide () 12.5 mg PO DAILY [facility] Last Admin: 10/14/19 09:33 Dose: 12.5 mg Documented by: Hydroxychloroquine [facility] ([facility]) [address] [facility] Last Admin: 10/14/19 09:33 Dose: 200 mg Documented by: Sodium Chloride () 250 mls @ 15 mls/hr IV .[id number] PRN PRN Reason: Saline Flush Sodium Chloride () 250 mls @ 15 mls/hr IV .[id number] PRN PRN Reason: Additional IVPB Infusion Sodium Chloride () 1,000 mls @ 125 mls/hr IV .Q8H [facility] Last Admin: 10/14/19 13:24 Dose: 125 mls/hr Documented by: Lisinopril (Zestril) 20 mg PO BID [facility] Last Admin: 10/14/19 09:33 Dose: 20 mg Documented by: Methylprednisolone (Solu-Medrol) 40 mg IV Q8 [facility] Last Admin: 10/14/19 13:22 Dose: 40 mg Documented by: Montelukast Sodium (Singulair) 10 mg PO DAILY [facility] Last Admin: 10/14/19 09:33 Dose: 10 mg Documented by: Nutritional Formula (Lactose Free) (Ensure Enlive) 120 ml PO 4X/DAY [facility] Last Admin: 10/14/19 13:20 Dose: Not Given Documented by: Ondansetron HCl (Zofran) 4 mg IV Q8H PRN PRN PRN Reason: NAUSEA/VOMITING Oseltamivir Phosphate (Tamiflu) 30 mg PO BID [facility] Stop: 10/18/19 22:01 Last Admin: 10/14/19 09:34 Dose: 30 mg Documented by: Sodium Chloride () 10 - 40 ml IV UD PRN PRN Reason: SALINE FLUSH Last Admin: 10/14/19 05:56 Dose: 10 ml Documented by: Assessment/Plan Patient seen by Itzel REYNOLDS under my supervision Patient was admitted with a complaint of shortness of breath and a diagnosis of influenza from earlier in the day. She had recently come into contact with her grandson who had influenza A. She went to see her PCP and was diagnosed with influenza. She had nausea and vomiting and threw up her Tamiflu so decided to come into the ED for overnight hydration and observation. Patient still feels weak. Still complains of being slightly short of breath though she has improved since admission. She denies any chest pain or palpitations, dizziness, abdominal pain, diarrhea or vomiting. Review systems otherwise negative. Labs and vitals reviewed. o/e: Vital Signs Height 5 ft 5 in Weight: 211 lb 13.828 oz Weight in Pounds 211.9 lbs Pulse Ox 92 Temperature 97.8 F Pulse Rate 94 Respiratory Rate 20 Blood Pressure 151/76 Blood Pressure Position Semi-Fowlers General: Alert, Oriented x3, Cooperative HEENT: Atraumatic, PERRLA, EOMI, Normocephalic Neck: Supple, No JVD, Negative Carotid Bruits Lungs: Diminished, Rhonchi, Wheezes Cardiovascular: Regular rate, Regular Rhythm, Normal S1, Normal S2, No murmurs Abdomen: Bowel Sounds Present, Soft, Non Tender, Non-Distended, Obese Extremities: No clubbing, No cyanosis, No edema, Capillary Refill Less than 3 Seconds Skin: No rashes, No breakdown Musculoskeletal: No Tenderness to Palpation of Joints or Extremities Neurological: Cranial nerves II-XII grossly intact, Neuro grossly intact Psych/Mental Status: Normal Affect, Appropriate Plan is to continue hydration with IV fluids. Titrate oxygen to maintain saturation above 90%. Continue with IV steroids and p.o. Tamiflu. Rest as per GAIL Baker's notes which I have reviewed and endorsed. Code Visit OBSV E&M: 30138 Subsequent observation care L2
[2019-10-14] MEDS: guaiFENesin 1,200 MG Tablet 1200 MG PO ×2 (15:07→21:21)
[2019-10-14] MEDS: Atorvastatin Calcium 20 MG Tablet PO (21:21)
[2019-10-15] VITALS (20 sets, daily range): BP systolic 125–205; BP diastolic 61–82; PULSE 61–86; RESP 16–22; TEMP 36.4–36.8; O2SAT 95–98
[2019-10-15] MEDS: 0.9% Normal Saline 1,000 ML 125 ML IV (05:10)
--- NOTE | 2019-10-15 05:15 | NURSING ---
Nannette Tenorio from respiratory therapy for breathing tmt.
[2019-10-15] MEDS: Ipratropium/Albuterol Sulfate 3 ML AMPUL.NEB INHALATION ×6 (05:25→23:04)
[2019-10-15] MEDS: hydrALAZINE 25 MG Tablet PO ×3 (05:31→19:33)
[2019-10-15] MEDS: hydroCHLOROthiazide 12.5mg 12.5 MG PO (05:32)
[2019-10-15] MEDS: Carvedilol 12.5 MG Tablet PO ×2 (05:32→19:33)
[2019-10-15] MEDS: Lisinopril 20 MG Tablet PO ×2 (05:32→21:45)
[2019-10-15] MEDS: Budesonide Respules 0.5 MG/2 ML AMPUL.NEB. INHALATION (07:22)
[2019-10-15] MEDS: Hydroxychloroquine 200 MG Tablet PO ×2 (08:20→17:58)
[2019-10-15] MEDS: Famotidine 20 MG Tablet PO ×2 (10:03→21:45)
[2019-10-15] MEDS: Citalopram 10 MG Tablet PO (10:03)
[2019-10-15] MEDS: Aspirin E.C. 81 MG Tablet PO (10:03)
[2019-10-15] MEDS: Montelukast 10 MG Tablet PO (10:03)
[2019-10-15] MEDS: Enoxaparin 40 MG/0.4 ML Syringe SC (10:03)
[2019-10-15] MEDS: Oseltamivir Phosphate 30 MG Capsule PO ×2 (10:03→21:45)
[2019-10-15] MEDS: guaiFENesin 1,200 MG Tablet 1200 MG PO ×2 (10:03→21:45)
--- NOTE | 2019-10-15 12:45 | PN_ITS ---
<Itzel Dillard - Last Filed: 10/15/19 12:48> Patient Problems: Active and Suspected Problems (Last Reviewed 09/24/19 @ 04:55 by Michael Ryan MD) Influenza (Acute) Subjective: Patient seen and examined. Reports increased shortness of breath early this morning which provoked significant anxiety. Breathing now improved. Denies other current symptoms. - Physical Exam Vitals/I&O's: Vital Signs Temp Pulse Resp BP Pulse Ox 97.8 F 68 22 H 146/61 H 96 10/15/19 12:24 10/15/19 12:24 10/15/19 12:24 10/15/19 12:24 10/15/19 12:24 Oxygen Flow Rate (L/min) 2 Oxygen Delivery Method Room Air Weight: 211 lb 13.828 oz Body Mass Index (BMI) 35.2 Intake and Output for Last 24 Hours 10/13/19 10/14/19 10/15/19 23:59 23:59 23:59 Intake Total 2627.09 / 2627.09 2275.01 / 2275.01 Balance 2627.09 / 2627.09 2275.01 / 2275.01 General: Alert, Oriented x3, Cooperative HEENT: Atraumatic, PERRLA, EOMI, Normocephalic Neck: Supple, No JVD, Negative Carotid Bruits Lungs: Diminished, Rhonchi, Wheezes Cardiovascular: Regular rate, Regular Rhythm, Normal S1, Normal S2, No murmurs Abdomen: Bowel Sounds Present, Soft, Non Tender, Non-Distended, Obese Extremities: No clubbing, No cyanosis, No edema, Capillary Refill Less than 3 Seconds Skin: No rashes, No breakdown Musculoskeletal: No Tenderness to Palpation of Joints or Extremities Neurological: Cranial nerves II-XII grossly intact Psych/Mental Status: Normal Affect, Appropriate Microbiology Past 72 Hours 10/14/19 07:29 Mucosa - Nose Influenza Types A,B Direct FA ([facility]) - Final Influenzae A Current Medications Albuterol/Ipratropium (Duoneb) 3 ml INHALATION Q4H.RT [facility] Last Admin: 10/15/19 11:15 Dose: 3 ml Documented by: Aspirin (Ecotrin) 81 mg PO DAILY [facility] Last Admin: 10/15/19 10:03 Dose: 81 mg Documented by: Atorvastatin Calcium (Lipitor) 20 mg PO QHS [facility] Last Admin: 10/14/19 21:21 Dose: 20 mg Documented by: Budesonide (Pulmicort Aerosol) 0.5 mg INHALATION Q12H.RT [facility] Last Admin: 10/15/19 07:22 Dose: 0.5 mg Documented by: Carvedilol (Coreg) 12.5 mg PO BID [facility] Last Admin: 10/15/19 05:32 Dose: 12.5 mg Documented by: Citalopram Hydrobromide (Celexa) 10 mg PO DAILY [facility] Last Admin: 10/15/19 10:03 Dose: 10 mg Documented by: Enoxaparin Sodium (Lovenox) 40 mg SC DAILY [facility] Last Admin: 10/15/19 10:03 Dose: 40 mg Documented by: Famotidine (Pepcid) 20 mg PO BID [facility] Last Admin: 10/15/19 10:03 Dose: 20 mg Documented by: Guaifenesin (Mucinex) 1,200 mg PO BID [facility] Last Admin: 10/15/19 10:03 Dose: 1,200 mg Documented by: Hydralazine HCl (Apresoline) 25 mg PO TID [facility] Last Admin: 10/15/19 05:31 Dose: 25 mg Documented by: Hydrochlorothiazide () 12.5 mg PO DAILY [facility] Last Admin: 10/15/19 05:32 Dose: 12.5 mg Documented by: Hydroxychloroquine Sulfate (Plaquenil) 200 mg PO BIDCM [facility] Last Admin: 10/15/19 08:20 Dose: 200 mg Documented by: Sodium Chloride () 250 mls @ 15 mls/hr IV .[id number] PRN PRN Reason: Saline Flush Sodium Chloride () 250 mls @ 15 mls/hr IV .[id number] PRN PRN Reason: Additional IVPB Infusion Lisinopril (Zestril) 20 mg PO BID [facility] Last Admin: 10/15/19 05:32 Dose: 20 mg Documented by: Methylprednisolone (Solu-Medrol) 40 mg IV Q8 [facility] Last Admin: 10/15/19 05:31 Dose: 40 mg Documented by: Montelukast Sodium (Singulair) 10 mg PO DAILY [facility] Last Admin: 10/15/19 10:03 Dose: 10 mg Documented by: Nutritional Formula (Lactose Free) (Ensure Enlive) 120 ml PO 4X/DAY [facility] Last Admin: 10/15/19 10:03 Dose: 120 ml Documented by: Ondansetron HCl (Zofran) 4 mg IV Q8H PRN PRN PRN Reason: NAUSEA/VOMITING Oseltamivir Phosphate (Tamiflu) 30 mg PO BID [facility] Stop: 10/18/19 22:01 Last Admin: 10/15/19 10:03 Dose: 30 mg Documented by: Sodium Chloride () 10 - 40 ml IV UD PRN PRN Reason: SALINE FLUSH Last Admin: 10/14/19 05:56 Dose: 10 ml Documented by: Medical Necessity - Tobacco Use Smoking Status: Never smoker Assessment/Plan All Active Problems (Last Reviewed 09/24/19 @ 04:55 by Michael Ryan MD) Influenza (Acute) Asthma exacerbation (Acute) 1. Asthma with exacerbation secondary to acute influenza A with chronic hypoxic respiratory failure-continue Tamiflu regimen. IV Solu-Medrol. DuoNeb aerosols. Continue supplement oxygen to maintain O2 at or above 90%. Patient wears supplemental oxygen at bedtime chronically as well as as needed. Follows with Dr. Oakley as outpatient. Consult Dr. Oakley. 2. Hypertension- Continue home benazepril, carvedilol, hydralazine, HCTZ regimen. 3. Arthritis/fibromyalgia-continue Plaquenil. 4. Depression-continue citalopram regimen. 5. Obesity- encouraged diet and lifestyle modifications. 6. Hyperlipidemia-continue statin. 7. Carotid artery disease status post carotid endarterectomy-continue aspirin, statin. 8. History of aortic aneurysm DVT prophylaxis-Lovenox subcu This patient was seen by GAIL Baker under the supervision of Dr. Mckeon. <Michaela Mckeon - Last Filed: 10/15/19 15:14> - Physical Exam Vitals/I&O's: Vital Signs Temp Pulse Resp BP Pulse Ox 97.8 F 68 22 H 146/61 H 96 10/15/19 12:24 10/15/19 14:05 10/15/19 12:24 10/15/19 12:24 10/15/19 12:24 Oxygen Flow Rate (L/min) 2 Oxygen Delivery Method Room Air Weight: 211 lb 13.828 oz Body Mass Index (BMI) 35.2 Intake and Output for Last 24 Hours 10/13/19 10/14/19 10/15/19 23:59 23:59 23:59 Intake Total 2627.09 / 2627.09 2275.01 / 2275.01 Balance 2627.09 / 2627.09 2275.01 / 2275.01 Microbiology Past 72 Hours 10/14/19 07:29 Mucosa - Nose Influenza Types A,B Direct FA ([facility]) - Final Influenzae A Current Medications Albuterol/Ipratropium (Duoneb) 3 ml INHALATION Q4H.RT [facility] Last Admin: 10/15/19 11:15 Dose: 3 ml Documented by: Aspirin (Ecotrin) 81 mg PO DAILY [facility] Last Admin: 10/15/19 10:03 Dose: 81 mg Documented by: Atorvastatin Calcium (Lipitor) 20 mg PO QHS [facility] Last Admin: 10/14/19 21:21 Dose: 20 mg Documented by: Budesonide (Pulmicort Aerosol) 0.5 mg INHALATION Q12H.RT [facility] Last Admin: 10/15/19 07:22 Dose: 0.5 mg Documented by: Carvedilol (Coreg) 12.5 mg PO BID [facility] Last Admin: 10/15/19 05:32 Dose: 12.5 mg Documented by: Citalopram Hydrobromide (Celexa) 10 mg PO DAILY [facility] Last Admin: 10/15/19 10:03 Dose: 10 mg Documented by: Enoxaparin Sodium (Lovenox) 40 mg SC DAILY [facility] Last Admin: 10/15/19 10:03 Dose: 40 mg Documented by: Famotidine (Pepcid) 20 mg PO BID [facility] Last Admin: 10/15/19 10:03 Dose: 20 mg Documented by: Guaifenesin (Mucinex) 1,200 mg PO BID [facility] Last Admin: 10/15/19 10:03 Dose: 1,200 mg Documented by: Hydralazine HCl (Apresoline) 25 mg PO TID [facility] Last Admin: 10/15/19 14:05 Dose: 25 mg Documented by: Hydrochlorothiazide () 12.5 mg PO DAILY [facility] Last Admin: 10/15/19 05:32 Dose: 12.5 mg Documented by: [facility] Admin: 01/08/20 08:20 Dose: 200 mg Documented by: Sodium Chloride () 250 mls @ 15 mls/hr IV .[id number] PRN PRN Reason: Saline Flush Sodium Chloride () 250 mls @ 15 mls/hr IV .[id number] PRN PRN Reason: Additional IVPB Infusion Lisinopril (Zestril) 20 mg PO BID [facility] Last Admin: 10/15/19 05:32 Dose: 20 mg Documented by: Methylprednisolone (Solu-Medrol) 40 mg IV Q8 [facility] Last Admin: 10/15/19 14:05 Dose: 40 mg Documented by: Montelukast Sodium (Singulair) 10 mg PO DAILY [facility] Last Admin: 10/15/19 10:03 Dose: 10 mg Documented by: Nutritional Formula (Lactose Free) (Ensure Enlive) 120 ml PO 4X/DAY [facility] Last Admin: 10/15/19 14:05 Dose: 120 ml Documented by: Ondansetron HCl (Zofran) 4 mg IV Q8H PRN PRN PRN Reason: NAUSEA/VOMITING Oseltamivir Phosphate (Tamiflu) 30 mg PO BID [facility] Stop: 10/18/19 22:01 Last Admin: 10/15/19 10:03 Dose: 30 mg Documented by: Sodium Chloride () 10 - 40 ml IV UD PRN PRN Reason: SALINE FLUSH Last Admin: 10/15/19 14:05 Dose: 10 ml Documented by: Assessment/Plan Patient seen by Itzel Dillard NP-C under my supervision Patient still complains of feeling short of breath. She feels very worn out with the slightest exertion. She still coughing but denies any chest pain or palpitations or dizziness. According to her daughter, patient has been in the hospital 3 times over the past few weeks, first at [facility] where she was diagnosed with RSV. She was also admitted at [facility] according to the family few weeks ago for shortness of breath and this is her third admission. Patient has not followed up with a paper cap machine operator for 1 year now for her asthma because her old paper cap machine operator retired. She has just established care with Dr. Oakley and has an upcoming appointment. Daughter is concerned that her asthma is not well managed and she has not seen a paper cap machine operator for the past year and this could be contributing to her worsening shortness of breath. They would therefore like pulmonary consult while she is in the hospital. We have since otherwise negative. o/e: Vital Signs Height 5 ft 5 in Weight: 211 lb 13.828 oz Weight in Pounds 211.9 lbs Pulse Ox 96 Temperature 97.8 F Pulse Rate 68 Respiratory Rate 22 Blood Pressure [BP] 125/66 Blood Pressure 146/61 Blood Pressure Position [BP] Semi-Fowlers Blood Pressure Position Semi-Fowlers General: Alert, Oriented x3, Cooperative HEENT: Atraumatic, PERRLA, EOMI, Normocephalic Neck: Supple, No JVD, Negative Carotid Bruits Lungs: Diminished, Rhonchi, Wheezes in all lung [place]. On 2L of oxygen Cardiovascular: Regular rate, Regular Rhythm, Normal S1, Normal S2, No murmurs Abdomen: Bowel Sounds Present, Soft, Non Tender, Non-Distended, Obese Extremities: No clubbing, No cyanosis, No edema, Capillary Refill Less than 3 Seconds Skin: No rashes, No breakdown Musculoskeletal: No Tenderness to Palpation of Joints or Extremities Neurological: Cranial nerves II-XII grossly intact, Neuro grossly intact Psych/Mental Status: Normal Affect, Appropriate Continue IV Solu-Medrol and Tamiflu. Titrate oxygen to maintain saturation above 90%. Consult pulmonology-Dr. Oakley is out of town. We will consult Dr. Barber. For likely dc tomorrow if patient improves. Rest as per Itzel Dillard NP-C's notes which I have reviewed and endorsed. Code Visit OBSV E&M: 52664 Subsequent observation care L2
--- NOTE | 2019-10-15 13:53 | CASEMGMT ---
MANDEEP ALVAREZ reviewed and completed GARRETT form with patient. Patient voiced understanding and had no questions at this time. Patient signed GARRETT form. Copy of signed form given to patient. Original signed form placed on chart.
[2019-10-15] MEDS: 0.9% Saline Lock 10 ML Syringe IV ×3 (14:05→21:46)
--- NOTE | 2019-10-15 16:49 | PCM.CONS.PUL ---
Problem List (1) Aortic aneurysm Status: Acute Qualifiers: Aortic location: thoracoabdominal aorta Presence of rupture: without rupture Qualified Code(s): I71.6 - Thoracoabdominal aortic aneurysm, without rupture (2) Obesity due to excess calories Status: Acute Qualifiers: Obesity classification: adult class 2 (BMI 35 - 39.9) Body mass index: BMI 35.0-35.9 (3) Steroid side effects Status: Chronic Qualifiers: Encounter type: sequela Qualified Code(s): T38.0X5S - Adverse effect of glucocorticoids and synthetic analogues, sequela (4) Influenza Status: Acute (5) Asthma exacerbation Status: Acute Qualifiers: Asthma severity: severe Asthma persistence: persistent Qualified Code(s): J45.51 - Severe persistent asthma with (acute) exacerbation Reason for Consult Date of Consultation: 10/15/19 Reason for Consultation: Asthma exacerbation History of Present Illness: The patient is a 73 year old F, with past medical history listed below, who presented was [facility] on 10/14/2019 secondary to progressive shortness of breath and a diagnosis of influenza from her primary care physician. Patient had reported exposure to a known influenza patient (grandson) recently. Patient had been placed on Tamiflu, but was having nausea and vomiting and had thrown up her Tamiflu for the first 2 days. Patient was feeling more weak and was advised to be admitted for hydration and observation. On presentation, patient did not have a leukocytosis, but did have a platelet count of 75 and a creatinine of 1.03. Chest x-ray reportedly showed no infiltrates. Patient was placed on nasal cannula oxygen secondary to mild desaturation. Patient was also noted to have hypertension initially reported as 240/120 by the patient. Patient reports that she has been admitted 3 times in the last month and a half for similar type symptoms. Patient states that previous hospitalizations have been related to RSV. Patient states she is treated with steroids and then discharged home. Patient is unclear if she was checked for supplemental oxygen need prior to discharge. Patient has been seen by Dr. Oakley in the past, but has not made it to a follow-up appointment. Patient states that she has been treated by Dr. Aragon in the past, but he has retired and she has not been seen in over a year. 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 Patient states she did have a heart catheterization about a year ago that was reportedly negative. Patient has reported some lower extremity edema. Patient has been diagnosed with obstructive sleep apnea in the past, but was unable to tolerate CPAP therapy, so currently only uses 2 L nasal cannula with sleep. Patient reports that she has been on steroids 4-5 times per year leading to a cushingoid type of appearance. Patient does have a pulse oximeter at home and states that he can fall less than 90% at times, but not consistently. For the last month she has been living with her daughter secondary to her bedroom being on the second floor in her normal home. This is how she was exposed to her grandson with influenza. Patient also reports that she has inflammatory polyarthropathy and has been seen by Dr. Pinedo in the past. This has led to some of her steroid burst. Review of systems otherwise negative from a constitutional, HEENT, respiratory, cardiovascular, GI, genitourinary, musculoskeletal, skin, neurologic, psychiatric and hematologic system unless stated above. Past Medical History Past Medical History (Chronic Problems): Chronic Problems (Last Reviewed 09/24/19 @ 04:55 by Michael Ryan MD) Steroid side effects (Chronic) Medical History: Medical History (Last Reviewed 09/24/19 @ 04:55 by Michael Ryan MD) Asthma J45.909 Allergies Penicillins Allergy (Severe, Verified 09/23/19 20:53) Anaphylaxis acetaminophen [From [place]] Adverse Reaction (Verified 09/23/19 20:54) Upset Stomach hydrocodone [From [place]] Adverse Reaction (Verified 09/23/19 20:54) Upset Stomach meperidine [From [place]] Adverse Reaction (Verified 09/23/19 20:54) Upset Stomach trouble waking up, lethargic Home Medications: Ambulatory Orders Medication Instructions Recorded Aspirin [Aspir 81] 81 mg PO DAILY 09/23/19 Atorvastatin Calcium [Lipitor] 20 mg PO QHS 09/23/19 Benazepril HCl 20 mg PO BID 09/23/19 Budesonide/Formoterol 160/4.5 2 puff INHALATION BID 09/23/19 [Symbicort 160/4.5 Mcg Inhaler (SP)] Carvedilol 12.5 mg PO BID 09/23/19 Citalopram Hydrobromide 10 mg PO DAILY 09/23/19 [Citalopram HBr] Famotidine 20 mg PO BID 09/23/19 Fluticasone 0.05% [Flonase Nasal 1 - 2 spray NASAL DAILY 09/23/19 Faxon] Hydralazine HCl 25 mg PO TID 09/23/19 Hydroxychloroquine [Plaquenil] 200 mg PO BIDCM 09/23/19 Levalbuterol Tartrate [Xopenex Hfa 1 puff INHALATION Q4H PRN PRN 09/23/19 Inhaler] Montelukast Sodium [Singulair] 10 mg PO DAILY 09/23/19 Nystatin 2 applicatio TOPICAL BID PRN 09/23/19 Promethazine HCl/Codeine 5 ml PO TID PRN 09/23/19 [Promethazine-Codeine Syrup] Hydrochlorothiazide [Hctz] 12.5 mg PO DAILY 10/14/19 Ondansetron [Ondansetron Odt] 8 mg SL Q6H PRN PRN 10/14/19 Oseltamivir Phosphate [Tamiflu] 30 mg PO BID 10/14/19 Prednisone See Taper PO DAILY 10/14/19 Surgical History: appendectomy, cholecystectomy, - - Carotid endarterectomy Smoking Status: Never smoker - *Family History Maternal History Items: Heart Disease, Hypertension Paternal History Items: Heart Disease Review of Systems Comment: See HPI Patient Problems: Active and Suspected Problems (Last Reviewed 09/24/19 @ 04:55 by Michael Ryan MD) Influenza (Acute) Aortic aneurysm (Acute) Obesity due to excess calories (Acute) Objective: No previous pulmonary function tests are available for review. Patient does have a history of elevated eosinophil count in August 2016 and February 2017. Patient has not had any chest x-ray. None of her cardiac work-up is available for review - Physical Exam Vitals/I&O's: Vital Signs Temp Pulse Resp BP Pulse Ox 36.6 C 85 20 H 146/61 H 96 10/15/19 12:24 10/15/19 15:20 10/15/19 15:20 10/15/19 12:24 10/15/19 12:24 Oxygen Flow Rate (L/min) 2 Oxygen Delivery Method Room Air Weight: 96.1 kg Body Mass Index (BMI) 35.2 Intake and Output for Last 24 Hours 10/13/19 10/14/19 10/15/19 23:59 23:59 23:59 Intake Total 2627.09 / 2627.09 2275.01 / 2275.01 Balance 2627.09 / 2627.09 2275. / 2275.01 General: Alert, Oriented x3, Cooperative, No apparent distress, - - Cushingoid appearance. Obese. Mild conversational dyspnea. HEENT: Atraumatic, PERRLA, EOMI, Normocephalic, - - Slight flushing of the cheeks Oral: Moist Mucosa, No Gingival or Mucosal Lesions/ Ulcerations Neck: Supple, No JVD, No Nodes, Trachea Midline Lungs: No rhonchi, No rales, Diminished, Wheezes, - - Symmetric expansion. No dullness to percussion. Cardiovascular: Regular rate, Regular Rhythm, Normal S1, Normal S2, No murmurs, No rub noted, No Gallop Abdomen: Bowel Sounds Present, Soft, Non Tender, Non-Distended, Obese Extremities: No clubbing, No cyanosis, Edema - Trace to 1+ lower extremities Skin: - - Some flushing of the cheeks noted. Dermal atrophy noted. No breakdown. Musculoskeletal: No Tenderness to Palpation of Joints or Extremities Lymphatic: No Cervical, Supraclavicular, or Inguinal Adenopathy Neurological: Cranial nerves II-XII grossly intact, Neuro grossly intact, Motor Exam 5/5 strength throughout Psych/Mental Status: Alert and oriented to time, place, person, mood and affect Microbiology Past 72 Hours 10/14/19 07:29 Mucosa - Nose Influenza Types A,B Direct FA ([facility]) - Final Influenzae A Current Medications Albuterol/Ipratropium (Duoneb) 3 ml INHALATION Q4H.RT [facility] Last Admin: 10/15/19 15:20 Dose: 3 ml Documented by: Aspirin (Ecotrin) 81 mg PO DAILY [facility] Last Admin: 10/15/19 10:03 Dose: 81 mg Documented by: Atorvastatin Calcium (Lipitor) 20 mg PO QHS [facility] Last Admin: 10/14/19 21:21 Dose: 20 mg Documented by: Budesonide (Pulmicort Aerosol) 0.5 mg INHALATION Q12H.RT [facility] Last Admin: 10/15/19 07:22 Dose: 0.5 mg Documented by: Carvedilol (Coreg) 12.5 mg PO BID [facility] Last Admin: 10/15/19 05:32 Dose: 12.5 mg Documented by: Citalopram Hydrobromide (Celexa) 10 mg PO DAILY [facility] Last Admin: 10/15/19 10:03 Dose: 10 mg Documented by: Enoxaparin Sodium (Lovenox) 40 mg SC DAILY [facility] Last Admin: 10/15/19 10:03 Dose: 40 mg Documented by: Famotidine (Pepcid) 20 mg PO BID [facility] Last Admin: 10/15/19 10:03 Dose: 20 mg Documented by: Guaifenesin (Mucinex) 1,200 mg PO BID [facility] Last Admin: 10/15/19 10:03 Dose: 1,200 mg Documented by: Hydralazine HCl (Apresoline) 25 mg PO TID [facility] Last Admin: 10/15/19 14:05 Dose: 25 mg Documented by: Hydralazine HCl (Apresoline Iv) 10 mg IV Q6H PRN PRN PRN Reason: BLOOD PRESSURE ELEVATION Hydrochlorothiazide (Hctz) 25 mg PO DAILY [facility] Hydroxychloroquine Sulfate (Plaquenil) 200 mg PO BIDCM [facility] Last Admin: 10/15/19 08:20 Dose: 200 mg Documented by: Sodium Chloride () 250 mls @ 15 mls/hr IV .[id number] PRN PRN Reason: Saline Flush Sodium Chloride () 250 mls @ 15 mls/hr IV .[id number] PRN PRN Reason: Additional IVPB Infusion Lisinopril (Zestril) 20 mg PO BID [facility] Last Admin: 10/15/19 05:32 Dose: 20 mg Documented by: Methylprednisolone (Solu-Medrol) 40 mg IV Q8 [facility] Last Admin: 10/15/19 14:05 Dose: 40 mg Documented by: Montelukast Sodium (Singulair) 10 mg PO DAILY [facility] Last Admin: 10/15/19 10:03 Dose: 10 mg Documented by: Nutritional Formula (Lactose Free) (Ensure Enlive) 120 ml PO 4X/DAY [facility] Last Admin: 10/15/19 14:05 Dose: 120 ml Documented by: Ondansetron HCl (Zofran) 4 mg IV Q8H PRN PRN PRN Reason: NAUSEA/VOMITING Oseltamivir Phosphate (Tamiflu) 30 mg PO BID [facility] Stop: 10/18/19 22:01 Last Admin: 10/15/19 10:03 Dose: 30 mg Documented by: Sodium Chloride () 10 - 40 ml IV UD PRN PRN Reason: SALINE FLUSH Last Admin: 10/15/19 14:05 Dose: 10 ml Documented by: Assessment/Plan All Active Problems (Last Reviewed 09/24/19 @ 04:55 by Michael Ryan MD) Influenza (Acute) Aortic aneurysm (Acute) Obesity due to excess calories (Acute) Asthma exacerbation (Acute) RECOMMENDATIONS: 1. Wean oxygen as tolerated 2. Discontinue Pulmicort. Continue Solu-Medrol, Singulair, Tamiflu and bronchodilators 3. Walking oximetry prior to discharge 4. Attempt to obtain old records on cardiac history 5. Consider teaching of low-salt diet from dietitian 6. Outpatient complete PFT and possible evaluation for biologic intervention 7. Consider BiPAP 12/6 centimeters of water for rescue if develops difficulty overnight IMPRESSIONS: 1. Reported acute asthma exacerbation secondary to influenza Patient with multiple courses of steroids over the last year per patient history. This does have multiple ER visits associated with her reported asthma. No pulmonary function tests are available for confirmation of asthma. Patient does have autoimmune disease, so pulmonary fibrosis, pulmonary hypertension and congestive heart failure would also be considerations. Patient can be continued on Solu-Medrol, Singulair, Tamiflu and bronchodilators for now. Likely no benefit of Pulmicort in the setting of full dose steroid therapy. Patient will need a walking oximetry prior to discharge. Patient may be a candidate for biologic intervention as an outpatient. Will attempt to improve patient as an inpatient and complete extensive work-up as an outpatient if possible. Patient does state that she would like to follow-up in our office. 2. KATARINA?noncompliant Is reportedly has been diagnosed with obstructive sleep apnea in the past. Patient is using supplemental oxygen at night. Stressed to the patient that this is not a therapy for obstructive sleep apnea. Untreated sleep apnea may be adding to diastolic dysfunction. Can attempt to obtain old sleep study with trial of CPAP therapy while in the hospital. Patient may also require a repeat titration study as she has been on steroids frequently and reports significant weight gain. 3. Obesity/polyarthropathy/depression/hypertension/advanced age/poor history/hyperlipidemia Complicates care, management, recovery and prognosis. Okay to continue with baseline medications from my perspective. Patient understands the role of weight loss and the overall disease plan of care, but this will be difficult given recurrent steroid bursts. Code Visit Inpatient E&M: 55293 Init Hosp L3
[2019-10-15] MEDS: hydrALAZINE 20 MG/ML Vial 10 MG IV (18:06)
[2019-10-15] MEDS: Atorvastatin Calcium 20 MG Tablet PO (21:45)
[2019-10-16] VITALS (14 sets, daily range): BP systolic 150–179; BP diastolic 71–84; PULSE 62–78; RESP 18–22; TEMP 36.4–36.7; O2SAT 94–96
[2019-10-16] MEDS: Ipratropium/Albuterol Sulfate 3 ML AMPUL.NEB INHALATION ×6 (03:02→23:09)
[2019-10-16] MEDS: 0.9% Saline Lock 10 ML Syringe IV ×3 (05:38→21:26)
[2019-10-16] MEDS: hydrALAZINE 25 MG Tablet PO ×3 (05:38→21:26)
[2019-10-16 07:08] LABS: Absolute Lymphocyte Count 0.47 X10^3/uL (0.83-4.51); Absolute Neutrophil Count 5.1 X10^3/uL (2.0-7.7); Hematocrit 32.7 % (37-47); Hemoglobin 10.3 g/dL (12.0-15.0); Lymphocyte # 0.47 X10^3/ul (4.0); Mean Corp Hgb Conc 31.5 g/dL (32-36); Mean Corpuscular Hgb 28.4 pg (27.0-32.0); Mean Corpuscular Volume 90.1 fL (81-99); Mean Platelet Vol. 11.1 fl (6.2-12.0); Monocyte# 0.26 X10^3/uL; Monocyte% 4.4 % (0-10); NRBC Flagged by Analyzer 0 % (0-5); Neutrophil # 5.09 X10^3/uL (2.7-7.7); Neutrophil % 86.2 % (47-70); POSITIVE DIFFERENTIAL YES; Platelet Count 101 K/mm3 (150-450); RBC Distribution Width CV 12.3 % (11.6-14.6); Red Blood Count 3.63 M/mm3 (4.2-5.4); White Blood Count 5.9 K/mm3 (4.4-11.0)
[2019-10-16 07:09] LABS: Differential Indicated SCAN CRITERIA MET
[2019-10-16 07:18] LABS: Anion Gap 5 (5-15); BUN 25 mg/dL (7-18); BUN/Creat Ratio 30.3 RATIO (10-20); Calcium,Total 8.5 mg/dL (8.5-10.1); Chloride 107 mmol/L (98-107); Creatinine, Serum 0.83 mg/dL (0.55-1.02); EST Glomerular Filtration Rate 72 mL/min (>60); Est Glom Filt Rate - Afr Amer 87 mL/min (>60); Glucose 134 mg/dL (74-106); Potassium 3.8 mmol/L (3.5-5.1); Sodium Level 141 mmol/L (136-145)
[2019-10-16] MEDS: Lisinopril 20 MG Tablet PO ×2 (09:38→21:26)
[2019-10-16] MEDS: Famotidine 20 MG Tablet PO ×2 (09:38→21:26)
[2019-10-16] MEDS: Montelukast 10 MG Tablet PO (09:39)
[2019-10-16] MEDS: Aspirin E.C. 81 MG Tablet PO (09:39)
[2019-10-16] MEDS: hydroCHLOROthiazide 25 MG Tablet PO (09:39)
[2019-10-16] MEDS: Hydroxychloroquine 200 MG Tablet PO ×2 (09:39→17:30)
[2019-10-16] MEDS: guaiFENesin 1,200 MG Tablet 1200 MG PO ×2 (09:39→21:27)
[2019-10-16] MEDS: Citalopram 10 MG Tablet PO (09:39)
[2019-10-16] MEDS: Carvedilol 12.5 MG Tablet PO ×2 (09:39→21:26)
[2019-10-16] MEDS: Enoxaparin 40 MG/0.4 ML Syringe SC (09:39)
[2019-10-16] MEDS: Oseltamivir Phosphate 30 MG Capsule PO ×2 (09:39→21:26)
--- NOTE | 2019-10-16 10:47 | PN_ITS ---
Patient Problems: Active and Suspected Problems (Last Reviewed 09/24/19 @ 04:55 by Michael Ryan MD) Influenza (Acute) Aortic aneurysm (Acute) Obesity due to excess calories (Acute) Subjective: Patient feels subjectively improved compared to previous. Patient does report that she was to the bed yesterday and believes her cough is improving. Patient is still requiring supplemental oxygen to maintain saturations. No chest pain has been reported. - Physical Exam Vitals/I&O's: Vital Signs Temp Pulse Resp BP Pulse Ox 36.5 C L 69 18 179/75 H 94 10/16/19 09:40 10/16/19 09:40 10/16/19 09:40 10/16/19 09:40 10/16/19 09:40 Oxygen Flow Rate (L/min) 2 Oxygen Delivery Method Nasal Cannula Weight: 96.1 kg Body Mass Index (BMI) 35.2 Intake and Output for Last 24 Hours 10/14/19 10/15/19 10/16/19 23:59 23:59 23:59 Intake Total 2627.09 / 2627.09 2675.01 / 2675.01 400 / 400 Output Total 300 / 300 Balance 2627.09 / 2627.09 2675.01 / 2375.01 100 / 100 General: Alert, Oriented x3, Cooperative, No apparent distress, Well developed, Well nourished, - - Obese. Mild conversational dyspnea. HEENT: Atraumatic, PERRLA, EOMI, Normocephalic, - - No scleral icterus or injection noted Oral: Moist Mucosa, No Gingival or Mucosal Lesions/ Ulcerations Neck: Supple, No JVD, No Nodes, Trachea Midline Lungs: No rhonchi, No rales, Diminished, Wheezes Cardiovascular: Regular rate, Regular Rhythm, Normal S1, Normal S2, No murmurs, No rub noted, No Gallop Abdomen: Bowel Sounds Present, Soft, Non Tender, Non-Distended, Obese Extremities: No clubbing, No cyanosis, Edema - Trace to 1+ Skin: No rashes, No breakdown Musculoskeletal: No Tenderness to Palpation of Joints or Extremities Lymphatic: No Cervical, Supraclavicular, or Inguinal Adenopathy Neurological: Cranial nerves II-XII grossly intact, Neuro grossly intact, Motor Exam 5/5 strength throughout Psych/Mental Status: Alert and oriented to time, place, person, mood and affect Microbiology Past 72 Hours 10/14/19 07:29 Mucosa - Nose Influenza Types A,B Direct FA ([facility]) - Final Influenzae A Laboratory Results 10/16/19 06:50: WBC 5.9, RBC 3.63 L, Hgb 10.3 L, Hct 32.7 L, MCV 90.1, MCH 28.4, MCHC 31.5 L, RDW Std Deviation 40.0, RDW Coeff of [place] 12.3, Plt Count 101 L, MPV 11.1, Immature Gran % (Auto) 1.400 H, Neut % (Auto) 86.2 H, Lymph % (Auto) 8.0 L , [place] % (Auto) 4.4, Eos % (Auto) 0.0, Baso % (Auto) 0.0, Absolute Neuts (auto) 5.1, Absolute Lymphs (auto) 0.47 L, Nucleated RBC % 0, Differential Comment COMMENT 10/16/19 06:50: Sodium 141, Potassium 3.8, Chloride 107, Carbon Dioxide 29.0, Anion Gap 5, BUN 25 H, Creatinine 0.83, Estim Creat Clear Calc 52.70, Est GFR (MDRD) Af Amer 87, Est GFR (MDRD) Non-Af 72, BUN/Creatinine Ratio 30.3 H, Glucose 134 H, Calcium 8.5 Current Medications Albuterol/Ipratropium (Duoneb) 3 ml INHALATION Q4H.RT [facility] Last Admin: 10/16/19 10:44 Dose: 3 ml Documented by: Aspirin (Ecotrin) 81 mg PO DAILY [facility] Last Admin: 10/16/19 09:39 Dose: 81 mg Documented by: Atorvastatin Calcium (Lipitor) 20 mg PO QHS [facility] Last Admin: 10/15/19 21:45 Dose: 20 mg Documented by: Carvedilol (Coreg) 12.5 mg PO BID [facility] Last Admin: 10/16/19 09:39 Dose: 12.5 mg Documented by: Citalopram Hydrobromide (Celexa) 10 mg PO DAILY [facility] Last Admin: 10/16/19 09:39 Dose: 10 mg Documented by: Enoxaparin Sodium (Lovenox) 40 mg SC DAILY [facility] Last Admin: 10/16/19 09:39 Dose: 40 mg Documented by: Famotidine (Pepcid) 20 mg PO BID [facility] Last Admin: 10/16/19 09:38 Dose: 20 mg Documented by: Guaifenesin (Mucinex) 1,200 mg PO BID [facility] Last Admin: 10/16/19 09:39 Dose: 1,200 mg Documented by: Hydralazine HCl (Apresoline) 25 mg PO TID [facility] Last Admin: 10/16/19 05:38 Dose: 25 mg Documented by: Hydralazine HCl (Apresoline Iv) 10 mg IV Q6H PRN PRN PRN Reason: BLOOD PRESSURE ELEVATION Last Admin: 10/15/19 18:06 Dose: 10 mg Documented by: Hydrochlorothiazide (Hctz) 25 mg PO DAILY [facility] Last Admin: 10/16/19 09:39 Dose: 25 mg Documented by: [facility] Last Admin: 10/16/19 09:39 Dose: 200 mg Documented by: Sodium Chloride () 250 mls @ 15 mls/hr IV .[id number] PRN PRN Reason: Saline Flush Sodium Chloride () 250 mls @ 15 mls/hr IV .[id number] PRN PRN Reason: Additional IVPB Infusion Lisinopril (Zestril) 20 mg PO BID [facility] Last Admin: 10/16/19 09:38 Dose: 20 mg Documented by: Methylprednisolone (Solu-Medrol) 40 mg IV Q8 [facility] Last Admin: 10/16/19 05:38 Dose: 40 mg Documented by: Montelukast Sodium (Singulair) 10 mg PO DAILY [facility] Last Admin: 10/16/19 09:39 Dose: 10 mg Documented by: Nutritional Formula (Lactose Free) (Ensure Enlive) 120 ml PO 4X/DAY [facility] Last Admin: 10/16/19 09:43 Dose: 120 ml Documented by: Ondansetron HCl (Zofran) 4 mg IV Q8H PRN PRN PRN Reason: NAUSEA/VOMITING Oseltamivir Phosphate (Tamiflu) 30 mg PO BID [facility] Stop: 10/18/19 22:01 Last Admin: 10/16/19 09:39 Dose: 30 mg Documented by: Sodium Chloride () 10 - 40 ml IV UD PRN PRN Reason: SALINE FLUSH Last Admin: 01/09/20 05:38 Dose: 10 ml Documented by: Medical Necessity - Tobacco Use Smoking Status: Never smoker Assessment/Plan All Active Problems (Last Reviewed 09/24/19 @ 04:55 by Michael Ryan MD) Influenza (Acute) Aortic aneurysm (Acute) Obesity due to excess calories (Acute) Asthma exacerbation (Acute) RECOMMENDATIONS: 1. Wean oxygen as tolerated 2. Wean Solu-Medrol. Continue Singulair, Tamiflu and bronchodilators 3. Walking oximetry prior to discharge 4. Attempt to obtain old records on cardiac history 5. Consider teaching of low-salt diet from dietitian. Empiric diuretic 6. Outpatient complete PFT and possible evaluation for biologic intervention 7. Consider BiPAP 12/6 centimeters of water for rescue if develops difficulty overnight IMPRESSIONS: 1. Reported acute asthma exacerbation secondary to influenza Patient with multiple courses of steroids over the last year per patient h istory. This does have multiple ER visits associated with her reported asthma. No pulmonary function tests are available for confirmation of asthma. Patient does have autoimmune disease, so pulmonary fibrosis, pulmonary hypertension and congestive heart failure would also be considerations. Patient can be continued on Singulair, Tamiflu and bronchodilators for now. Will wean patient steroids. Patient will be given an empiric dose of IV Lasix. Patient will need a walking oximetry prior to discharge. Patient may be a candidate for biologic intervention as an outpatient. Will attempt to improve patient as an inpatient and complete extensive work-up as an outpatient if possible. Patient does state that she would like to follow-up in our office. 2. KATARINA?noncompliant Is reportedly has been diagnosed with obstructive sleep apnea in the past. Patient is using supplemental oxygen at night. Stressed to the patient that this is not a therapy for obstructive sleep apnea. Untreated sleep apnea may be adding to diastolic dysfunction. Can attempt to obtain old sleep study with trial of CPAP therapy while in the hospital. Patient may also require a repeat titration study as she has been on steroids frequently resulting and significant weight gain. 3. Obesity/polyarthropathy/depression/hypertension/advanced age/poor history/hyperlipidemia Complicates care, management, recovery and prognosis. Okay to continue with baseline medications from my perspective. Patient understands the role of weight loss and the overall disease plan of care, but this will be difficult given recurrent steroid bursts. Code Visit Inpatient E&M: 01359 Subs Hosp L2
[2019-10-16] MEDS: Furosemide 20 MG/2 ML VIAL IV (11:23)
--- NOTE | 2019-10-16 12:01 | PN_ITS ---
Patient Problems: Active and Suspected Problems (Last Reviewed 09/24/19 @ 04:55 by Michael Ryan MD) Influenza (Acute) Aortic aneurysm (Acute) Obesity due to excess calories (Acute) Subjective: Patient seen and examined. She says shortness of breath is better after she received breathing treatment this morning. She denies any chest pain, palpitations, dizziness, diarrhea or vomiting. Review of systems is otherwise negative. Labs and vitals reviewed. Vitals/I&O's: Vital Signs Temp Pulse Resp BP Pulse Ox 97.7 F L 76 20 H 179/75 H 94 10/16/19 09:40 10/16/19 10:44 10/16/19 10:44 10/16/19 09:40 10/16/19 11:04 Oxygen Flow Rate (L/min) 2 Oxygen Delivery Method Nasal Cannula Weight: 211 lb 13.828 oz Body Mass Index (BMI) 35.2 Intake and Output for Last 24 Hours 10/14/19 10/15/19 10/16/19 23:59 23:59 23:59 Intake Total 2627.09 / 2627.09 2675.01 / 2675.01 400 / 400 Output Total 300 / 300 Balance 2627.09 / 2627.09 2675.01 / 2375.01 100 / 100 General: Alert, Oriented x3, Cooperative HEENT: Atraumatic, PERRLA, EOMI, Normocephalic Neck: Supple, No JVD, Negative Carotid Bruits Lungs: Diminished, Rhonchi,minimal wheezing in lung [place], no crackles. On 2L of oxygen Cardiovascular: Regular rate, Regular Rhythm, Normal S1, Normal S2, No murmurs Abdomen: Bowel Sounds Present, Soft, Non Tender, Non-Distended, Obese Extremities: No clubbing, No cyanosis, No edema, Capillary Refill Less than 3 Seconds Skin: No rashes, No breakdown Musculoskeletal: No Tenderness to Palpation of Joints or Extremities Neurological: Cranial nerves II-XII grossly intact, Neuro grossly intact Psych/Mental Status: Normal Affect, Appropriate Microbiology Past 72 Hours 10/14/19 07:29 Mucosa - Nose Influenza Types A,B Direct FA ([facility]) - Final Influenzae A Laboratory Results 10/16/19 06:50: WBC 5.9, RBC 3.63 L, Hgb 10.3 L, Hct 32.7 L, MCV 90.1, MCH 28.4, MCHC 31.5 L, RDW Std Deviation 40.0, RDW Coeff of [place] 12.3, Plt Count 101 L, MPV 11.1, Immature Gran % (Auto) 1.400 H, Neut % (Auto) 86.2 H, Lymph % (Auto) 8.0 L , Ware % (Auto) 4.4, Eos % (Auto) 0.0, Baso % (Auto) 0.0, Absolute Neuts (auto) 5.1, Absolute Lymphs (auto) 0.47 L, Nucleated RBC % 0, Differential Comment COMMENT 10/16/19 06:50: Sodium 141, Potassium 3.8, Chloride 107, Carbon Dioxide 29.0, Anion Gap 5, BUN 25 H, Creatinine 0.83, Estim Creat Clear Calc 52.70, Est GFR (MDRD) Af Amer 87, Est GFR (MDRD) Non-Af 72, BUN/Creatinine Ratio 30.3 H, Glucose 134 H, Calcium 8.5 Current Medications Albuterol/Ipratropium (Duoneb) 3 ml INHALATION Q4H.RT [facility] Last Admin: 10/16/19 10:44 Dose: 3 ml Documented by: Aspirin (Ecotrin) 81 mg PO DAILY [facility] Last Admin: 10/16/19 09:39 Dose: 81 mg Documented by: Atorvastatin Calcium (Lipitor) 20 mg PO QHS [facility] Last Admin: 10/15/19 21:45 Dose: 20 mg Documented by: Carvedilol (Coreg) 12.5 mg PO BID [facility] Last Admin: 10/16/19 09:39 Dose: 12.5 mg Documented by: Citalopram Hydrobromide (Celexa) 10 mg PO DAILY [facility] Last Admin: 10/16/19 09:39 Dose: 10 mg Documented by: Enoxaparin Sodium (Lovenox) 40 mg SC DAILY [facility] Last Admin: 10/16/19 09:39 Dose: 40 mg Documented by: Famotidine (Pepcid) 20 mg PO BID [facility] Last Admin: 10/16/19 09:38 Dose: 20 mg Documented by: Guaifenesin (Mucinex) 1,200 mg PO BID [facility] Last Admin: 10/16/19 09:39 Dose: 1,200 mg Documented by: Hydralazine HCl (Apresoline) 25 mg PO TID [facility] Last Admin: 10/16/19 05:38 Dose: 25 mg Documented by: Hydralazine HCl (Apresoline Iv) 10 mg IV Q6H PRN PRN PRN Reason: BLOOD PRESSURE ELEVATION Last Admin: 10/15/19 18:06 Dose: 10 mg Documented by: Hydrochlorothiazide (Hctz) 25 mg PO DAILY [facility] Last Admin: 10/16/19 09:39 Dose: 25 mg Documented by: [facility]xychloroquine [facility] ([facility]) [facility] Last Admin: 10/16/19 09:39 Dose: 200 mg Documented by: Sodium Chloride () 250 mls @ 15 mls/hr IV .[id number] PRN PRN Reason: Saline Flush Sodium Chloride () 250 mls @ 15 mls/hr IV .[id number] PRN PRN Reason: Additional IVPB Infusion Lisinopril (Zestril) 20 mg PO BID [facility] Last Admin: 10/16/19 09:38 Dose: 20 mg Documented by: Methylprednisolone (Solu-Medrol) 40 mg IV Q12 [facility] Montelukast Sodium (Singulair) 10 mg PO DAILY [facility] Last Admin: 10/16/19 09:39 Dose: 10 mg Documented by: Nutritional Formula (Lactose Free) (Ensure Enlive) 120 ml PO 4X/DAY [facility] Last Admin: 10/16/19 09:43 Dose: 120 ml Documented by: Ondansetron HCl (Zofran) 4 mg IV Q8H PRN PRN PRN Reason: NAUSEA/VOMITING Oseltamivir Phosphate (Tamiflu) 30 mg PO BID [facility] Stop: 10/18/19 22:01 Last Admin: 10/16/19 09:39 Dose: 30 mg Documented by: Sodium Chloride () 10 - 40 ml IV UD PRN PRN Reason: SALINE FLUSH Last Admin: 10/16/19 11:23 Dose: 10 ml Documented by: STROKE Vital Signs/Narrative: Vital Signs Temp Pulse Resp BP Pulse Ox 10/16/19 11:04 94 10/16/19 10:44 76 20 H 10/16/19 09:40 97.7 F L 69 18 179/75 H 94 Medical Necessity - Tobacco Use Smoking Status: Never smoker Assessment/Plan All Active Problems (Last Reviewed 09/24/19 @ 04:55 by Michael Ryan MD) Influenza (Acute) Aortic aneurysm (Acute) Obesity due to excess calories (Acute) Asthma exacerbation (Acute) 1. Acute asthma exacerbation due to acute influenza infection * Patient on Tamiflu, IV Solu-Medrol and breathing treatments. * Is better today. Continue titrating oxygen to maintain saturation above 90%. * Patient has had numerous courses of steroids over the past year due to multiple ER visits for asthma. She has not seen her licensed massage therapist in over a year because he retired and she is here to establish care with the licensed massage therapist. * On Singulair, bronchodilators and Tamiflu. * Be weaned off of steroids. * will need walking pulse ox prior to discharge. Per pulmonology notes which are reviewed, patient may be a candidate for Biologics on outpatient basis. * Follow-up with Dr. Barber after discharge. * 2. Hypertension * Blood pressure has been in the 150s to 170s systolic. Control has been poor. * On benazepril, carvedilol and hydrochlorothiazide as well as hydralazine. Will adjust blood pressure medications on account of elevated blood pressure. 3. Arthritis and fibromyalgia: On Plaquenil. 4. Depression: On citalopram 5. Hyperlipidemia: On statin. 6. Carotid artery stenosis status post carotid endarterectomy: On aspirin and statin 8. History of aortic aneurysm: stable. DVT prophylaxis-Lovenox Code Visit Inpatient E&M: 95215 Subs Hosp L2
--- NOTE | 2019-10-16 12:52 | CASEMGMT ---
MANDEEP CM Readmission note Previous Admission: 09.23- Diagnosis: Acute Asthma Exacerbation, Hypoxic Resp Failure Presentation: Asthma exacerbation. Discharge Disposition: Home with daughter Current Admission Diagnosis: Influenza, Asthma exacerbation PCP: Dr. Alana Penn Specialists: Dr. Barber. Pt had established with Dr. Oakley, but pt has seen Dr. Barber in hospital and wishes to see his practice on dc. Transportation: drives or family can drive. DME: Home oxygen through [facility] (ph: [phone]) Pt has compressor, portability, nebulizer. Script is for 2L NC continuous. -pt has walker and cane, does not use. DC PLAN: Home. Pt states she is staying with her daughter for a few weeks prior to and on dc. Daughter is able to assist. Juan Jose MONROY RN ACM
[2019-10-16] MEDS: Atorvastatin Calcium 20 MG Tablet PO (21:26)
[2019-10-17] VITALS (10 sets, daily range): BP systolic 155–184; BP diastolic 62–80; PULSE 68–80; RESP 18–22; TEMP 36.4–36.6; O2SAT 88–95
[2019-10-17] MEDS: Ipratropium/Albuterol Sulfate 3 ML AMPUL.NEB INHALATION ×5 (03:25→13:49)
[2019-10-17] MEDS: hydrALAZINE 25 MG Tablet PO ×2 (03:53→14:41)
[2019-10-17] MEDS: hydroCHLOROthiazide 25 MG Tablet PO (09:23)
[2019-10-17] MEDS: Aspirin E.C. 81 MG Tablet PO (09:23)
[2019-10-17] MEDS: Citalopram 10 MG Tablet PO (09:23)
[2019-10-17] MEDS: 0.9% Saline Lock 10 ML Syringe IV ×2 (09:23→09:55)
[2019-10-17] MEDS: Carvedilol 12.5 MG Tablet PO (09:23)
[2019-10-17] MEDS: Enoxaparin 40 MG/0.4 ML Syringe SC (09:24)
[2019-10-17] MEDS: Oseltamivir Phosphate 30 MG Capsule PO (09:24)
[2019-10-17] MEDS: guaiFENesin 1,200 MG Tablet 1200 MG PO (09:24)
[2019-10-17] MEDS: Montelukast 10 MG Tablet PO (09:24)
[2019-10-17] MEDS: Hydroxychloroquine 200 MG Tablet PO (09:24)
[2019-10-17] MEDS: Famotidine 20 MG Tablet PO (09:26)
[2019-10-17] MEDS: Lisinopril 20 MG Tablet PO (09:26)
--- NOTE | 2019-10-17 09:40 | PN_ITS ---
Patient Problems: Active and Suspected Problems (Last Reviewed 09/24/19 @ 04:55 by Michael Ryan MD) Influenza (Acute) Aortic aneurysm (Acute) Obesity due to excess calories (Acute) Subjective: Patient feels subjectively improved compared to previous. Still requiring supplemental oxygen, but states she was able to walk approximately 3 rooms down yesterday with therapy. Patient states her cough is improving. Patient reported a good response to Lasix therapy. - Physical Exam Vitals/I&O's: Vital Signs Temp Pulse Resp BP Pulse Ox 36.6 C 71 21 H 155/62 H 95 10/17/19 06:04 10/17/19 07:27 10/17/19 07:27 10/17/19 06:04 10/17/19 07:26 Oxygen Flow Rate (L/min) 2 Oxygen Delivery Method Nasal Cannula Weight: 96.1 kg Body Mass Index (BMI) 35.2 Intake and Output for Last 24 Hours 10/15/19 10/16/19 10/17/19 23:59 23:59 23:59 Intake Total 2675.01 / 2675.01 1200 / 1700 700 / 700 Output Total 300 / 300 Balance 2675.01 / 2375.01 900 / 1400 700 / 700 General: Alert, Oriented x3, Cooperative, No apparent distress, - - Obese. No conversational dyspnea. HEENT: Atraumatic, PERRLA, EOMI, Normocephalic, - - No scleral icterus or injection noted Oral: Moist Mucosa, No Gingival or Mucosal Lesions/ Ulcerations Neck: Supple, No JVD, No Nodes, Trachea Midline Lungs: No rhonchi, No rales, Diminished, Wheezes - Sporadic at end exhalation. Cardiovascular: Regular rate, Regular Rhythm, Normal S1, Normal S2, No murmurs, No rub noted, No Gallop Abdomen: Bowel Sounds Present, Soft, Non Tender, Non-Distended, Obese Extremities: No clubbing, No cyanosis, Edema Skin: No rashes, No breakdown Musculoskeletal: No Tenderness to Palpation of Joints or Extremities Lymphatic: No Cervical, Supraclavicular, or Inguinal Adenopathy Neurological: Cranial nerves II-XII grossly intact, Neuro grossly intact, Motor Exam 5/5 strength throughout Psych/Mental Status: Alert and oriented to time, place, person, mood and affect Microbiology Past 72 Hours 10/14/19 07:29 Mucosa - Nose Influenza Types A,B Direct FA ([facility]) - Final Influenzae A Current Medications Albuterol/Ipratropium (Duoneb) 3 ml INHALATION Q4H.RT [facility] Last Admin: 10/17/19 06:58 Dose: 3 ml Documented by: Aspirin (Ecotrin) 81 mg PO DAILY [facility] Last Admin: 10/17/19 09:23 Dose: 81 mg Documented by: Atorvastatin Calcium (Lipitor) 20 mg PO QHS [facility] Last Admin: 10/16/19 21:26 Dose: 20 mg Documented by: Carvedilol (Coreg) 12.5 mg PO BID [facility] Last Admin: 10/17/19 09:23 Dose: 12.5 mg Documented by: Citalopram Hydrobromide (Celexa) 10 mg PO DAILY [facility] Last Admin: 10/17/19 09:23 Dose: 10 mg Documented by: Enoxaparin Sodium (Lovenox) 40 mg SC DAILY [facility] Last Admin: 10/17/19 09:24 Dose: 40 mg Documented by: Famotidine (Pepcid) 20 mg PO BID [facility] Last Admin: 10/17/19 09:26 Dose: 20 mg Documented by: Guaifenesin (Mucinex) 1,200 mg PO BID [facility] Last Admin: 10/17/19 09:24 Dose: 1,200 mg Documented by: Hydralazine HCl (Apresoline) 25 mg PO TID [facility] Last Admin: 10/17/19 03:53 Dose: 25 mg Documented by: Hydralazine HCl (Apresoline Iv) 10 mg IV Q6H PRN PRN PRN Reason: BLOOD PRESSURE ELEVATION Last Admin: 10/15/19 18:06 Dose: 10 mg Documented by: Hydrochlorothiazide (Hctz) 25 mg PO DAILY [facility] Last Admin: 10/17/19 09:23 Dose: 25 mg Documented by: [facility]xychloroquine [facility]) [facility] Last Admin: 10/17/19 09:24 Dose: 200 mg Documented by: Sodium Chloride () 250 mls @ 15 mls/hr IV .[id number] PRN PRN Reason: Saline Flush Sodium Chloride () 250 mls @ 15 mls/hr IV .[id number] PRN PRN Reason: Additional IVPB Infusion Lisinopril (Zestril) 20 mg PO BID [facility] Last Admin: 10/17/19 09:26 Dose: 20 mg Documented by: Methylprednisolone (Solu-Medrol) 40 mg IV Q12 [facility] Last Admin: 10/17/19 09:24 Dose: 40 mg Documented by: Montelukast Sodium (Singulair) 10 mg PO DAILY [facility] Last Admin: 10/17/19 09:24 Dose: 10 mg Documented by: Nutritional Formula (Lactose Free) (Ensure Enlive) 120 ml PO 4X/DAY [facility] Last Admin: 10/17/19 09:25 Dose: 120 ml Documented by: Ondansetron HCl (Zofran) 4 mg IV Q8H PRN PRN PRN Reason: NAUSEA/VOMITING Oseltamivir Phosphate (Tamiflu) 30 mg PO BID [facility] Stop: 10/18/19 22:01 Last Admin: 10/17/19 09:24 Dose: 30 mg Documented by: Sodium Chloride () 10 - 40 ml IV UD PRN PRN Reason: SALINE FLUSH Last Admin: 10/17/19 09:23 Dose: 10 ml Documented by: Medical Necessity - Tobacco Use Smoking Status: Never smoker Assessment/Plan All Active Problems (Last Reviewed 09/24/19 @ 04:55 by Michael Ryan MD) Influenza (Acute) Aortic aneurysm (Acute) Obesity due to excess calories (Acute) Asthma exacerbation (Acute) RECOMMENDATIONS: 1. Wean oxygen as tolerated 2. Transition to prednisone therapy and wean over the next 12 days. Continue Singulair, Tamiflu and bronchodilators 3. Walking oximetry prior to discharge 4. Attempt to obtain old records on cardiac history 5. Consider teaching of low-salt diet from dietitian. Empiric diuretic again today 6. Outpatient complete PFT and possible evaluation for biologic intervention 7. Consider BiPAP 12/6 centimeters of water for rescue if develops difficulty overnight 8. Likely okay to discharge if able to tolerate ambulation on 6 L or less. High clinical suspicion that oxygen will be required at discharge 9. Patient should follow-up in our office in 2 weeks if discharge. IMPRESSIONS: 1. Reported acute asthma exacerbation secondary to influenza Patient with multiple courses of steroids over the last year per patient history. This does have multiple ER visits associated with her reported asthma. No pulmonary function tests are available for confirmation of asthma. Patient does have autoimmune disease, so pulmonary fibrosis, pulmonary hypertension and congestive heart failure would also be considerations. Patient can be continued on Singulair, Tamiflu and bronchodilators for now. Patient will be transition to prednisone therapy. Will wean over 12 days given ambiguity on underlying obstructive lung disease. Patient will be given another empiric dose of IV Lasix. Patient will need a walking oximetry prior to discharge. Patient may be a candidate for biologic intervention as an outpatient. Will attempt to improve patient as an inpatient and complete extensive work-up as an outpatient if possible. Patient does state that she would like to follow-up in our office. High clinical suspicion that supplemental oxygen will be needed in some aspect given frequent hospitalizations. 2. KATARINA?noncompliant Is reportedly has been diagnosed with obstructive sleep apnea in the past. Patient is using supplemental oxygen at night. Stressed to the patient that this is not a therapy for obstructive sleep apnea. Untreated sleep apnea may be adding to diastolic dysfunction. Can attempt to obtain old sleep study with trial of CPAP therapy while in the hospital. Patient may also require a repeat titration study as she has been on steroids frequently resulting and significant weight gain. 3. Obesity/polyarthropathy/depression/hypertension/advanced age/poor history/hyperlipidemia Complicates care, management, recovery and prognosis. Okay to continue with baseline medications from my perspective. Patient understands the role of weight loss and the overall disease plan of care, but this will be difficult given recurrent steroid bursts. Code Visit Inpatient E&M: 14020 Subs Hosp L2
[2019-10-17] MEDS: Furosemide 20 MG/2 ML VIAL IV (09:55)
--- NOTE | 2019-10-17 10:49 | PCM.DC ---
- Discharge Diagnoses Current Active Problems: Current Active and Chronic Problems (Last Reviewed 09/24/19 @ 04:55 by Michael Ryan MD) Influenza (Acute) Aortic aneurysm (Acute) Obesity due to excess calories (Acute) Steroid side effects (Chronic) You will use the following diet at home:: Cardiac Your food should be the consistency of: Regular Your liquids should be the consistency of: Regular/Thin Discharge Activity: Return to Normal Activity Weight Bearing Status: Weight bearing as tolerated Call your doctor if you observe: Fever of 101 or Higher, Shortness of breath, Swelling in the ankles, Increased palpitations (irregular heartbeat) Instructions: Influenza, Understanding Asthma Triggers, Understanding Asthma Additional Instructions: use 2L of oxygen during the day and night as needed, for shortness of breath Allergies/Adverse Reactions: Allergies Penicillins Allergy (Severe, Verified 09/23/19 20:53) Anaphylaxis acetaminophen [From [place]] Adverse Reaction (Verified 09/23/19 20:54) Upset Stomach hydrocodone [From [place]] Adverse Reaction (Verified 09/23/19 20:54) Upset Stomach meperidine [From [place]] Adverse Reaction (Verified 09/23/19 20:54) Upset Stomach trouble waking up, lethargic Medications to take at Discharge Aspirin [Aspir 81] 81 mg PO DAILY 09/23/19 Atorvastatin Calcium [Lipitor] 20 mg PO QHS 09/23/19 Benazepril HCl 20 mg PO BID 09/23/19 Budesonide/Formoterol 160/4.5 [Symbicort 160/4.5 Mcg Inhaler (SP)] 2 puff INHALATION BID 09/23/19 Carvedilol 12.5 mg PO BID 09/23/19 Citalopram Hydrobromide [Citalopram HBr] 10 mg PO DAILY 09/23/19 Famotidine 20 mg PO BID 09/23/19 Fluticasone 0.05% [Flonase Nasal [place]] 1 - 2 spray NASAL DAILY 09/23/19 Hydralazine HCl 25 mg PO TID 09/23/19 Hydroxychloroquine [Plaquenil] 200 mg PO BIDCM 09/23/19 Levalbuterol Tartrate [Xopenex Hfa Inhaler] 1 puff INHALATION Q4H PRN PRN 09/23/19 Montelukast Sodium [Singulair] 10 mg PO DAILY 09/23/19 Nystatin 2 applicatio TOPICAL BID PRN 09/23/19 Promethazine HCl/Codeine [Promethazine-Codeine Syrup] 5 ml PO TID PRN 09/23/19 Hydrochlorothiazide [Hctz] 12.5 mg PO DAILY 10/14/19 Ondansetron [Ondansetron Odt] 8 mg SL Q6H PRN PRN 10/14/19 Guaifenesin [Mucinex] 1,200 mg PO BID #30 tab 10/17/19 MethylPREDNISolone DosePak [Medrol DosePak] 4 mg PO UD #1 box 10/17/19 Oseltamivir Phosphate [Tamiflu] 30 mg PO BID #3 cap 10/17/19 The following prescriptions were given: MethylPREDNISolone DosePak [Medrol DosePak] 4 mg PO UD #1 box Transmission Status: Pending to [facility] Guaifenesin [Mucinex] 1,200 mg PO BID #30 tab Transmission Status: Pending to [facility] Oseltamivir Phosphate [Tamiflu] 30 mg PO BID #3 cap Transmission Status: Pending to [facility] Primary Care Physician: Alana Penn MD [Primary Care Provider] - Please follow up with your Primary Care Physician in: one week Test Results: Test results from this visit will be discussed in further detail at your follow-up appointment, if applicable. Please Follow Up With: Dorian Barber MD When: 1-2 weeks; please call office for appointment Proposed Discharge Date: 10/17/19
--- NOTE | 2019-10-17 10:55 | DS.PCM_ITS ---
Discharge Date and Diagnosis Date of Admission: 10/14/19 Date of Discharge: 10/17/19 - Primary Discharge Diagnosis Active and Suspected Problems (Last Reviewed 09/24/19 @ 04:55 by Michael Ryan MD) Influenza (Acute) Aortic aneurysm (Acute) Obesity due to excess calories (Acute) acute asthma exacerbation - Secondary Discharge Diagnosis Chronic Problems (Last Reviewed 09/24/19 @ 04:55 by Michael Ryan MD) Steroid side effects (Chronic) Hospital Course and Treatment pulmonology- Dr Barber Operations: None Procedures: None Summary of Care Provided: The patient is a 73 year old F admitted with a complaint of shortness of breath on 10/14/2019. She has previous history of asthma and presented to the ED with shortness of breath and she had a new diagnosis with influenza from her PCPs office earlier in the day. He also had nausea and vomiting and threw up her Tamiflu. On admission, labs that had been done on outpatient basis showed WBC of 6.2 with hemoglobin of 12.1 hematocrit of 37.3. Chest x-ray done by PCP showed no acute findings. He was transferred from [facility] and managed for acute asthma exacerbation due to influenza. He was started on her Tamiflu and started on breathing treatments with duo nebs and IV Solu- Medrol. Patient shortness of breath gradually improved. 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 She has had numerous courses of steroids over the past year because of poorly controlled asthma. At patient's request, pulmonology was consulted. Patient shortness of breath gradually improved. Pulmonology, patient might be a good candidate for Biologics on outpatient basis. Patient had walking pulse ox prior to discharge and with ambulation, she was saturating at 88% on room air and required 2 L of oxygen. Patient was chronically on 2 L of oxygen at night at home. She was discharged home with a prescription for tapering dose of steroids, and oseltamivir 30 mg twice daily x3 doses which were left to complete a 5-day course. She is to follow-up with her primary care doctor and pulmonology. Patient seen and examined prior to discharge. She had no complaints and felt much better. Review systems otherwise negative. Labs and vitals reviewed. Home medication reviewed and reconciled. o/e: Vital Signs Height 5 ft 5 in Weight: 211 lb 13.828 oz Weight in Pounds 211.9 lbs Pulse Ox [AMBULATION with 93 Oxygen] Pulse Ox [AMBULATING on Room 88 Air] Pulse Ox [At REST on Room Air] 90 Pulse Ox 95 Temperature 97.9 F Pulse Rate 80 Respiratory Rate 20 Blood Pressure [2nd BP] 154/71 Blood Pressure [BP] 125/66 Blood Pressure 155/62 Blood Pressure Position [2nd Semi-Fowlers BP] Blood Pressure Position [BP] Semi-Fowlers Blood Pressure Position Semi-Fowlers General: Alert, Oriented x3, Cooperative HEENT: Atraumatic, PERRLA, EOMI, Normocephalic Neck: Supple, No JVD, Negative Carotid Bruits Lungs: Diminished, Rhonchi,minimal wheezing in lung [place], no crackles. On 2L of oxygen Cardiovascular: Regular rate, Regular Rhythm, Normal S1, Normal S2, No murmurs Abdomen: Bowel Sounds Present, Soft, Non Tender, Non-Distended, Obese Extremities: No clubbing, No cyanosis, No edema, Capillary Refill Less than 3 Seconds Skin: No rashes, No breakdown Musculoskeletal: No Tenderness to Palpation of Joints or Extremities Neurological: Cranial nerves II-XII grossly intact, Neuro grossly intact Psych/Mental Status: Normal Affect, Appropriate She was discharged home with 2 L of oxygen to use as needed for shortness of breath as well as at night. [] - Physical Exam Vitals/I&O's: Vital Signs Temp Pulse Resp BP Pulse Ox 97.9 F 71 21 H 155/62 H 90 10/17/19 06:04 10/17/19 07:27 10/17/19 07:27 10/17/19 06:04 10/17/19 09:50 Oxygen Flow Rate (L/min) [ 2 AMBULATION with Oxygen] Oxygen Flow Rate (L/min) 2 Oxygen Delivery Method Nasal Cannula Weight: 211 lb 13.828 oz Body Mass Index (BMI) 35.2 Intake and Output for Last 24 Hours 10/15/19 10/16/19 10/17/19 23:59 23:59 23:59 Intake Total 2675.01 / 2675.01 1200 / 1700 700 / 700 Output Total 300 / 300 Balance 2675.01 / 2375.01 900 / 1400 700 / 700 Microbiology Past 72 Hours 10/14/19 07:29 Mucosa - Nose Influenza Types A,B Direct FA ([facility]) - Final Influenzae A Current Medications Albuterol/Ipratropium (Duoneb) 3 ml INHALATION Q4H.RT [facility] Last Admin: 10/17/19 06:58 Dose: 3 ml Documented by: Aspirin (Ecotrin) 81 mg PO DAILY [facility] Last Admin: 10/17/19 09:23 Dose: 81 mg Documented by: Atorvastatin Calcium (Lipitor) 20 mg PO QHS [facility] Last Admin: 10/16/19 21:26 Dose: 20 mg Documented by: Carvedilol (Coreg) 12.5 mg PO BID [facility] Last Admin: 10/17/19 09:23 Dose: 12.5 mg Documented by: Citalopram Hydrobromide (Celexa) 10 mg PO DAILY [facility] Last Admin: 10/17/19 09:23 Dose: 10 mg Documented by: Enoxaparin Sodium (Lovenox) 40 mg SC DAILY [facility] Last Admin: 10/17/19 09:24 Dose: 40 mg Documented by: Famotidine (Pepcid) 20 mg PO BID [facility] Last Admin: 10/17/19 09:26 Dose: 20 mg Documented by: Guaifenesin (Mucinex) 1,200 mg PO BID [facility] Last Admin: 10/17/19 09:24 Dose: 1,200 mg Documented by: Hydralazine HCl (Apresoline) 25 mg PO TID [facility] Last Admin: 10/17/19 03:53 Dose: 25 mg Documented by: Hydralazine HCl (Apresoline Iv) 10 mg IV Q6H PRN PRN PRN Reason: BLOOD PRESSURE ELEVATION Last Admin: 10/15/19 18:06 Dose: 10 mg Documented by: Hydrochlorothiazide (Hctz) 25 mg PO DAILY [facility] Last Admin: 10/17/19 09:23 Dose: 25 mg Documented by: [facility]xychloroquine [facility]) [facility] Last Admin: 10/17/19 09:24 Dose: 200 mg Documented by: Sodium Chloride () 250 mls @ 15 mls/hr IV .[id number] PRN PRN Reason: Saline Flush Sodium Chloride () 250 mls @ 15 mls/hr IV .[id number] PRN PRN Reason: Additional IVPB Infusion Lisinopril (Zestril) 20 mg PO BID [facility] Last Admin: 10/17/19 09:26 Dose: 20 mg Documented by: Montelukast Sodium (Singulair) 10 mg PO DAILY [facility] Last Admin: 10/17/19 09:24 Dose: 10 mg Documented by: Nutritional Formula (Lactose Free) (Ensure Enlive) 120 ml PO 4X/DAY [facility] Last Admin: 10/17/19 09:25 Dose: 120 ml Documented by: Ondansetron HCl (Zofran) 4 mg IV Q8H PRN PRN PRN Reason: NAUSEA/VOMITING Oseltamivir Phosphate (Tamiflu) 30 mg PO BID [facility] Stop: 10/18/19 22:01 Last Admin: 10/17/19 09:24 Dose: 30 mg Documented by: Prednisone () 40 mg PO DAILY@0800 [facility] Sodium Chloride () 10 - 40 ml IV UD PRN PRN Reason: SALINE FLUSH Last Admin: 10/17/19 09:55 Dose: 10 ml Documented by: Discharge Diet: Low fat/ Low Cholesterol Discharge Activity: Return to Normal Activity Weight Bearing Status: Weight bearing as tolerated Call your doctor if you observe: Fever of 101 or Higher, Shortness of breath, Swelling in the ankles, Increased palpitations (irregular heartbeat) Home Medications: Medications to take at Discharge Aspirin [Aspir 81] 81 mg PO DAILY 09/23/19 Atorvastatin Calcium [Lipitor] 20 mg PO QHS 09/23/19 Benazepril HCl 20 mg PO BID 09/23/19 Budesonide/Formoterol 160/4.5 [Symbicort 160/4.5 Mcg Inhaler (SP)] 2 puff INHALATION BID 09/23/19 Carvedilol 12.5 mg PO BID 09/23/19 Citalopram Hydrobromide [Citalopram HBr] 10 mg PO DAILY 09/23/19 Famotidine 20 mg PO BID 09/23/19 Fluticasone 0.05% [Flonase Nasal Michael] 1 - 2 spray NASAL DAILY 09/23/19 Hydralazine HCl 25 mg PO TID 09/23/19 Hydroxychloroquine [Plaquenil] 200 mg PO BIDCM 09/23/19 Levalbuterol Tartrate [Xopenex Hfa Inhaler] 1 puff INHALATION Q4H PRN PRN 09/23/19 Montelukast Sodium [Singulair] 10 mg PO DAILY 09/23/19 Nystatin 2 applicatio TOPICAL BID PRN 09/23/19 Promethazine HCl/Codeine [Promethazine-Codeine Syrup] 5 ml PO TID PRN 09/23/19 Hydrochlorothiazide [Hctz] 12.5 mg PO DAILY 10/14/19 Ondansetron [Ondansetron Odt] 8 mg SL Q6H PRN PRN 10/14/19 Guaifenesin [Mucinex] 1,200 mg PO BID #30 tab 10/17/19 MethylPREDNISolone DosePak [Medrol DosePak] 4 mg PO UD #1 box 10/17/19 Oseltamivir Phosphate [Tamiflu] 30 mg PO BID #3 cap 10/17/19 Following Prescrptions Were Given to Patient: MethylPREDNISolone DosePak [Medrol DosePak] 4 mg PO UD #1 box Transmission Status: Received by [facility] Guaifenesin [Mucinex] 1,200 mg PO BID #30 tab Transmission Status: Received by [facility] Oseltamivir Phosphate [Tamiflu] 30 mg PO BID #3 cap Transmission Status: Received by [facility] Primary Care Physician: Alana Penn MD [Primary Care Provider] - Please follow up with your Primary Care Physician in: one week Please Follow Up With: Dorian Barber MD When: 1-2 weeks; please call office for appointment Patient Instructions: Understanding Asthma, Understanding Asthma Triggers, Influenza Disposition: Home Minutes spent on discharge:: 45 Patient Condition:: Stable Medical Necessity - Tobacco Use Smoking Status: Never smoker Meaningful Use Info Meaningful Use Diagnoses (Choose all that apply): None applicable Code Visit Inpatient E&M: 39196 Disch Hosp
== END 2019-10-17 15:24 | disposition home or self-care (01) | DRG 194 ==
PROVIDERS: Internal Medicine Critical Care Medicine; Admitting Provider Family Medicine; Family Provider Family Medicine; PCP Family Medicine; Visit Provider Student in an Organized Health Care Education/Training Program
DX: J10.1 Influenza due to other identified influenza virus with other respiratory manifestations (principal); J45.901 Unspecified asthma with (acute) exacerbation; F32.9 Major depressive disorder, single episode, unspecified; I10 Essential (primary) hypertension; E78.5 Hyperlipidemia, unspecified; Z68.35 Body mass index [BMI] 35.0-35.9, adult; Z79.82 Long term (current) use of aspirin; I71.9 Aortic aneurysm of unspecified site, without rupture; G47.33 Obstructive sleep apnea (adult) (pediatric); E66.09 Other obesity due to excess calories
CPT/HCPCS: 36415; 80048; 80053; 85025; 87804; 94640; 97161; 97166; 97802; J7030; A4216; J1940

== ENCOUNTER → 2019-11-17 12:54 | Outpatient (CLI) | payer MEDICARE, SELFPAY ==
[2019-10-14 03:35] VITALS: BMI 35.2
--- NOTE | 2019-11-18 09:21 | PFT ---
INTRODUCTION: The patient is a 74-year-old female who presents for pulmonary function studies secondary to a diagnosis of shortness of breath. Respiratory therapy reports good patient effort. Bronchodilators were used during testing. INTERPRETATION: Forced expiration spirometry demonstrates the presence of a severe large airways obstructive ventilatory defect. There was a significant response to aerosolized bronchodilators, based upon change noted in FVC. Spirograms are of fair quality and do not plateau indicating slow emptying of the lungs. Body plethysmography was performed and reveals an elevated RV to 123% of predicted, indicative of underlying air trapping. Diffusing capacity by single breath CO is reduced at 58% of predicted. IMPRESSION: Partially reversible severe large airways obstructive ventilatory defect with associated air trapping and reduction in diffusing capacity.
== END ==
PROVIDERS: PCP Family Medicine; Referring Provider Nurse Practitioner Acute Care; Visit Provider Nurse Practitioner Acute Care
DX: R06.02 Shortness of breath (principal)
CPT/HCPCS: 94060; 94726; 94729

== ENCOUNTER → 2019-11-18 10:28 | Outpatient (CLI) | payer MEDICARE, SELFPAY ==
[2019-10-14 03:35] VITALS: BMI 35.2
[2019-11-18 10:30] VITALS: PULSE 74; PULSE 84; PULSE 88; PULSE 89; PULSE 91; O2SAT 94; O2SAT 95; O2SAT 96; O2SAT 98
--- NOTE | 2019-11-19 13:52 | PCM.PSN.6M ---
PSN 6 Minute Walk Test - 6 Minute Walk Test 6 Minute Walk Test: 6 Minute Walk Test PSN:6-Minute Walk Test Start: 11/18/19 10:46 Freq: Status: Active Protocol: [id number].6MINW Document 11/18/19 10:30 ALBIN (Rec: 11/18/19 10:49 JLA [id number]) 6 Minute Walk Test Date Performed 11/18/19 Time Performed 10:30 Height 5 ft 4 in Weight: 234 lb Weight in Pounds 234.[address]: Naomi Dennison Assistive device used: None Pre-test Oxygen Delivery Method Room Air Pulse Ox (%) 94 Pulse Rate (60-100 beats/min) 74 Dyspnea Minda Scale (0-10) 0 Exertion Minda Scale (6-20) 6 1st minute Oxygen Delivery Method Room Air Pulse Ox (%) 96 Pulse Rate (60-100 beats/min) 84 2nd minute Oxygen Delivery Method Room Air Pulse Ox (%) 94 Pulse Rate (60-100 beats/min) 84 Number of Rests Taken 1 3rd minute Oxygen Delivery Method Room Air Pulse Ox (%) 96 Pulse Rate (60-100 beats/min) 89 4th minute Oxygen Delivery Method Room Air Pulse Ox (%) 95 Pulse Rate (60-100 beats/min) 88 5th minute Oxygen Delivery Method Room Air Pulse Ox (%) 96 Pulse Rate (60-100 beats/min) 91 6th minute Oxygen Delivery Method Room Air Pulse Ox (%) 95 Pulse Rate (60-100 beats/min) 89 Dyspnea Minda Scale (0-10) 3 Exertion Minda Scale (6-20) 12 Post-test Oxygen Delivery Method Room Air Pulse Ox (%) 98 Pulse Rate (60-100 beats/min) 74 Full Laps Walked 16 Partial Lap, Number of Tiles Walked 24 Total Distance Walked (ft) 968 - Interpretation Interpretation: The patient ambulated 968 feet over the course of 6 minutes beginning on room air without assistive devices or breaks. Pretesting oxygen saturation was noted to be 94% on room air. With ambulation, the guerita oxygen saturation was 94%. There was no significant exertional oxygen desaturation. - Recommendations Recommendations: There is no indication for the use of supplemental oxygen at this time.
== END ==
PROVIDERS: PCP Family Medicine; Referring Provider Nurse Practitioner Acute Care; Visit Provider Nurse Practitioner Acute Care
DX: R06.02 Shortness of breath (principal)
CPT/HCPCS: 94618

== ENCOUNTER → 2019-11-25 20:04 | Outpatient (CLI) | payer MEDICARE, SELFPAY ==
[2019-10-14 03:35] VITALS: BMI 35.2
== END ==
PROVIDERS: PCP Family Medicine; Referring Provider Nurse Practitioner Acute Care; Visit Provider Nurse Practitioner Acute Care
DX: G47.33 Obstructive sleep apnea (adult) (pediatric) (principal)
CPT/HCPCS: 95810

== ENCOUNTER → 2020-02-27 20:14 | Outpatient (CLI) | payer MEDICARE, SELFPAY ==
[2019-12-02 07:58] VITALS: BMI 35.2
== END ==
PROVIDERS: PCP Family Medicine; Referring Provider Nurse Practitioner Acute Care; Visit Provider Nurse Practitioner Acute Care
DX: G47.33 Obstructive sleep apnea (adult) (pediatric) (principal)
CPT/HCPCS: 95811

== ENCOUNTER → 2020-05-11 11:00 | Outpatient (CLI) | payer MEDICARE, SELFPAY ==
[2019-12-02 07:58] VITALS: BMI 35.2
== END ==
PROVIDERS: PCP Family Medicine; Referring Provider Nurse Practitioner Acute Care; Visit Provider Nurse Practitioner Acute Care
DX: G47.30 Sleep apnea, unspecified (principal)
CPT/HCPCS: 98960; G0463

== ENCOUNTER → 2020-06-08 13:03 | Outpatient (CLI) | payer MEDICARE, SELFPAY ==
[2019-12-02 07:58] VITALS: BMI 35.2
--- NOTE | 2020-06-09 12:13 | PFTCOMP ---
COMPLETE PULMONARY FUNCTION TEST INTERPRETATION Brief HPI: Patient is a 74 year old female, currently under the care of myself, who presents to [facility] for complete pulmonary function tests secondary to diagnosis of asthma. Respiratory therapist reports good effort and reproducible results. Interpretation: Forced expiration spirometry shows a severe large airways obstructive ventilatory defect with an FEV1 of 46% predicted. There is no significant bronchodilator response by strict ATS criteria. Spirograms are of good quality and plateau slowly, indicating slowly emptying areas of the lungs. The respiratory flow volume loop shows decreased expiratory flow rates at all lung volumes consistent with airway obstruction. Lung volumes by body plethysmography show a decreased total lung capacity at 3.91 L, 80% predicted. FRC and RV are elevated out of proportion. Lung volume measurements are consistent with air-trapping. Diffusion capacity by carbon monoxide is normal at 74% predicted. The airway resistance is elevated. Compared to previous pulmonary function tests from 11/17/2019, there is been a significant improvement in FVC and DLCO by 19% and 24% respectively. Impression: Irreversible severe mixed ventilatory defect with relatively preserved diffusion capacity and significant improvement compared to November.
== END ==
PROVIDERS: PCP Family Medicine; Referring Provider Internal Medicine Critical Care Medicine; Visit Provider Internal Medicine Critical Care Medicine
DX: J45.40 Moderate persistent asthma, uncomplicated (principal)
CPT/HCPCS: 94060; 94726; 94729

== ENCOUNTER → 2020-08-27 12:44 | Outpatient (CLI) | payer MEDICARE, SELFPAY ==
[2019-12-02 07:58] VITALS: BMI 35.2
--- NOTE | 2020-08-27 12:47 | RAD_ITS ---
STUDY: X-RAY - RIGHT ANKLE REASON FOR EXAM: Female, 74 years old. Twisted right ankle, swelling and pain TECHNIQUE: 3 view(s) of the ankle. COMPARISON: None. FINDINGS: Normal visualized distal tibia and fibula. Normal medial and lateral malleoli. Normal tibiotalar articulation and ankle mortise. Calcaneal spurs. The visualized subtalar, talonavicular, calcaneocuboid and tarsal articulations are normal. Lateral soft tissue swelling. RAD/Ankle min 3 Views IMPRESSION: Lateral soft tissue swelling. Calcaneal spurs. Electronically Signed: Ethan Alexis, at 13:28 EST , Service support ,
== END ==
PROVIDERS: PCP Family Medicine; Referring Provider Internal Medicine Rheumatology; Visit Provider Internal Medicine Rheumatology
DX: S93.401A Sprain of unspecified ligament of right ankle, initial encounter (principal); M06.4 Inflammatory polyarthropathy; M79.7 Fibromyalgia; M18.0 Bilateral primary osteoarthritis of first carpometacarpal joints; M47.897 Other spondylosis, lumbosacral region; K21.9 Gastro-esophageal reflux disease without esophagitis; Q66.70 Congenital pes cavus, unspecified foot; G47.33 Obstructive sleep apnea (adult) (pediatric); I10 Essential (primary) hypertension
CPT/HCPCS: 73610